=== PATIENT | male | born 1965 | race Caucasian/White ===

== ENCOUNTER 2018-10-08 14:41 | Observation (INO) ==
[2018-10-08] MEDS ORDERED: NORMAL SALINE 1,000 ML IV ONE (16:04)
[2018-10-08] MEDS ORDERED: PIPERACILLIN SODIUM/TAZOBACTAM 3.375 GM in DEXTROSE 5 % IN WATER 100 ML IV ONE ×2 (16:04)
[2018-10-08 16:36] LABS: Hematocrit 48.7 % (42.0-52.0); Hemoglobin 16.6 gm/dL (13.5-18.0); Mean Cell Volume 89.2 fl (78-100); Mean Corpuscular Hemoglobin 30.4 pg (27-31); Mean Corpuscular Hgb Conc 34.1 g/dl (32-36); Mean Platelet Volume 9.6 fl (8-11.3); Neutrophil % 65.6 % (42-75.0); Platelet Count 297 K/mm3 (150-450); Red Blood Count 5.46 M/mm3 (4.7-6.0); Red Cell Distribution Width 12.1 % (11.5-14.0); White Blood Count 12.2 K/mm3 (4.0-10.5)
--- NOTE | 2018-10-08 16:38 | ERNOTE ---
Lower Extremity HPI - Narrative Date of Service: 10/08/18 - General Lower Extremities Pain: foot: right Time Seen by Provider: 10/08/18 15:57 Source: patient Exam Limitations: no limitations - Immun/Allergies/Home Medications Immunizations: IMMUNIZATION HX Immunizations Up to Date Yes History of Influenza Vaccine No Hx Pneumococcal Vaccination Yes Allergies/Adverse Reactions: Allergies Allergy/AdvReac Type Severity Reaction Status Date / Time No Known Allergies Allergy Unverified 10/08/18 15:18 Home Medications: HOME MEDICATIONS Insulin Aspart [Novolog] 25 units SC .BEFORE MEALS 10/08/18 [Last Taken Unknown] Insulin Glargine,Hum.rec.anlog [Lantus] 43 unit SQ HS 10/08/18 [Last Taken Unknown] - History of Present Illness Narrative: Patient presents to the ED for right foot pain and swelling after stepping on a seashell. The patient is not great with exact dates but he had stepped on a seashell and went to [facility] where this was removed in the ED. He was placed on ABx (what sounds like augmentin) but the redness and swellign has worsened and his pain has worsened with pain now up the right leg. Possible fev er. No acute weakness. He feels the infection in his foot is getting worse so came to the ED. He states he has "a bad memory". he thinks this was taken out Wednesday or Wednesday of this week. Occurred: other - This week Location of Incident: other - unk[place]own when he stepped on it Method of Injury: Reports: other - stepped on a seashell Loss of Consciousness: Reports: no loss of consciousness Modifying Factors - (Improves): Reports: other - nothing Modifying Factors - (Worsens): Reports: other - nothing Associated Symptoms: Denies: headache, weakness, vomiting/diarrhea Other Injuries: Reports: none Subsequent Symptoms: Denies: sensory loss, numbness, motor loss Prior Treament: Denies: recently seen Review of Systems - Review of Systems Constitutional: Present: other - possible fever EYE: Present: no symptoms reported Respiratory: Absent: shortness of breath Cardiology: Absent: chest pain Gastrointestinal/Abdominal: Absent: abdominal pain Genitourinary: Absent: dysuria Musculoskeletal: Present: See HPI Skin: Present: See HPI Neurological: Present: other - no acute weakness All Other Systems: All systems neg except as marked Medical History (Updated 10/08/18 @ 15:16 by Maria Pelaez RN) COPD (chronic obstructive pulmonary disease) Diabetes Heart murmur Hypercholesteremia Hypertension Surgical History: Surgical History (Updated 10/08/18 @ 15:16 by Maria Pelaez RN) Knee pain cleaned out staph infection Right foot pain cleaned out staph infection Right hip pain cleaned out staph infection Family History: Family History (Updated 10/08/18 @ 15:17 by Maria Pelaez RN) Mother Diabetes Father Lung cancer Grandfather Myocardial infarction Social History: Preferred Language Setswana Do you have any caodaism or Yes cultural preference? Smoking Status Current every day smoker Have you smoked in the past 12 Yes months Alcohol Use none Drug Use none No Social History Section defined Physical Exam - Physical Exam General Appearance: Present: alert, no apparent distress Head Exam: Present: normal inspection, no evidence of injury Eye Exam: Normal inspection: bilateral, PERRL: bilateral Ears, Nose, Throat: Present: normal ENT inspection Neck: Present: normal inspection Respiratory: Present: no respiratory distress, normal breath sounds, no accessory muscle use, lungs clear Cardiovascular/Chest: Present: regular rate, rhythm, normal peripheral pulses Gastrointestinal/Abdominal: Present: normal bowel sounds, nontender, soft Back Exam: Absent: CVA tenderness (R), CVA tenderness (L) Extremity Exam: Present: other - there is redness and swelling of the right foot. The bottom of the foot has a 1cm area of eschar, firmness and no clear abscess. Redness top of foot also, warmth. No suggestion of acute neurovascular deficit. No evidence of DVT or clear evidence of nec fasc. Neurological Exam: Present: alert, no motor/sensory deficits Skin Exam: Present: normal color, warm/dry, other - redness and warmth right foot, see extremity exam Progress - Results and Orders Patient's Lab Results:: I have reviewed the patient's lab results. - Vital Signs Patient's Vital Signs:: I have reviewed the patient's vital signs. Vital Signs: Vital Signs 10/08/18 15:20 Temperature 37.0 C Pulse Rate 112 H Respiratory Rate 20 Blood Pressure 148/95 H O2 Sat by Pulse Oximetry 97 - X-Ray X-Ray #1 X-Ray: foot Interpretation: Interp. by me X-ray Comments: I reviewed official radiology report - Progress/Reassessment Chief Complaint: Lower Extremity Pain/ Injury Progress Note-Subjective: 10/08/18 17:57 Patient given IV fluids and IV antibiotics. He has foot infection worsening despite IV antibiotics. Diabetic. I discussed the case with Dr Gross who saw the patient in the ED and will admit the patient obs. Departure Clinical Impression: Cellulitis of foot, Diabetes, Failure of outpatient treatment, Hyperglycemia - Departure Disposition: Still a patient Condition: Fair
[2018-10-08 16:48] LABS: Albumin * 3.5 gm/dl (3.4-5.0); BUN/Creatinine Ratio 13.3 (9.0-21.6); Bilirubin, Total 0.4 mg/dL (0.0-1.1); CRP 3.9 mg/dL (0.0-0.9); Ca. Corrected For Albumin 9.2 mg/dL (8.4-10.2); Calcium * 9.1 mg/dL (7.9-10.9); Carbon Dioxide 26.9 mmol/L (24-32.6); Potassium 4.9 mmol/L (3.4-4.6); Total Protein 8.1 gm/dL (6.2-8.2)
--- NOTE | 2018-10-08 18:10 | HP ---
Chief Complaint - Chief Complaint Date of Service: 10/08/18 Time of Service: 17:35 Chief Complaint: Right foot pain and swelling History of Present Illness: 53-year-old male with a past medical history of hypertension, diabetes on ins ulin, COPD, hyperlipidemia presents with complaints of right foot pain. He states about 2 weeks ago he stepped on a shell and thought he had removed all the pieces. His foot pain worsened and began swelling so he presented to the [facility] and had a foot x-ray done that showed there was retained pieces inside. The rest of the shell was excised and he was started on antibiotics which she has completed. He states his foot did not improve but continued to hurt and swell until he could no longer walk on it so he presented to our emergency room. He was found to be mildly hypertensive and mildly tachycardic, mild leukocytosis of 12,000, foot x-ray showed no acute osseous abnormality. He was started on Zosyn in the ER. Blood cultures and wound cultures were obtained and he will be admitted for observation. Medical History (Updated 10/08/18 @ 18:18 by Caitlyn Pena MD) COPD (chronic obstructive pulmonary disease) Diabetes Heart murmur Hypercholesteremia Hypertension Surgical History: Surgical History (Updated 10/08/18 @ 15:16 by Maria Pelaez RN) Knee pain cleaned out staph infection Right foot pain cleaned out staph infection Right hip pain cleaned out staph infection Family History: Family History (Updated 10/08/18 @ 15:17 by Maria Pelaez RN) Mother Diabetes Father Lung cancer Grandfather Myocardial infarction Social History: Preferred Language [place] Do you have any yazidism or Yes cultural preference? Smoking Status Current every day smoker Have you smoked in the past 12 Yes months Alcohol Use none Drug Use none No Social History Section defined Review Of Systems (GEN) - Review of Systems Generalized/Overall Review: Present: Chills. Absent: Fever Respiratory: Absent: Shortness of Breath Cardiac: Absent: Chest Pain Abdominal: Absent: Abdominal Pain Musculoskeletal: Present: Other - Right foot pain and swelling Misc: All systems neg except as marked Immunizations: IMMUNIZATION HX Immunizations Up to Date Yes History of Influenza Vaccine No Hx Pneumococcal Vaccination Yes Allergies/Adverse Reactions: Allergies Allergy/AdvReac Type Severity Reaction Status Date / Time No Known Allergies Allergy Unverified 10/08/18 15:18 Home Medications: HOME MEDICATIONS Insulin Aspart [Novolog] 25 units SC .BEFORE MEALS 10/08/18 [Last Taken Unknown] Insulin Glargine,Hum.rec.anlog [Lantus] 43 unit SQ HS 10/08/18 [Last Taken Unknown] Exam - Exam Vital Signs: Vital Signs - Last Taken Temp 37.0 C 10/08/18 15:20 Pulse 112 H 10/08/18 15:20 Resp 20 10/08/18 15:20 BP 148/95 H 10/08/18 15:20 Pulse Ox 97 10/08/18 15:20 Constitutional: Present: Alert, Cooperative, Well developed, Well nourished, No distress, Middle aged ENT Exam: Present: hearing grossly normal Eye Exam: bilateral eye: normal inspection, PERRL Neck: Present: non-tender, supple, normal inspection, trachea midline, lymphadenopathy (L). Absent: lymphadenopathy (R) Back Exam: Present: normal inspection, no vertebral tenderness Respiratory: Present: lungs clear, normal breath sounds, no respiratory distress, no accessory muscle use, No wheezing. Absent: crackles, rhonchi Cardiovascular/Chest: Present: normal peripheral pulses, regular rate, rhythm, systolic murmur Peripheral Pulses: dorsalis-pedis (R): 1+, dorsalis-pedis (L): 1+ Abdomen: Present: Normal bowel sounds, soft, nontender Extremity: Present: swelling - Right foot Skin Exam: Present: warm/dry - Right foot erythematous and warm and tender to touch especially on plantar aspect Neurologic: Present: alert, normal mood/affect Appearance: Present: appropriate appearance Eye contact: Present: cooperative Thoughts: Present: normal mood /affect Diagnostic Studies: Abnormal Lab Results 10/08/18 10/08/18 10/08/18 Range/Units 16:12 16:12 16:12 WBC 12.2 H (4.0-10.5) K/mm3 Immature Gran # (Auto) 0.04 H (0.000-0.0310) K/mm3 Neutrophils # 8.0 H (1.3-6.0) K/mm3 ESR 39 H (0-10) mm/hr Potassium 4.9 H (3.4-4.6) mmol/L Anion Gap 15.0 H (6.8-13.8) mmol/L Random Glucose 420 H (70-110) mg/dL C-Reactive Prot, Quant 3.9 H (0.0-0.9) mg/dL Laboratory Results WBC 12.2 K/mm3 (4.0-10.5) H 10/08/18 16:12 RBC 5.46 M/mm3 (4.7-6.0) 10/08/18 16:12 Hgb 16.6 gm/dL (13.5-18.0) 10/08/18 16:12 Hct 48.7 % (42.0-52.0) 10/08/18 16:12 MCV 89.2 fl (78-100) 10/08/18 16:12 MCH 30.4 pg (27-31) 10/08/18 16:12 MCHC 34.1 g/dl (32-36) 10/08/18 16:12 RDW 12.1 % (11.5-14.0) 10/08/18 16:12 Plt Count 297 K/mm3 (150-450) 10/08/18 16:12 MPV 9.6 fl (8-11.3) 10/08/18 16:12 Immature Gran % (Auto) 0.30 % (0.001-0.429) 10/08/18 16:12 Immature Gran # (Auto) 0.04 K/mm3 (0.000-0.0310) H 10/08/18 16:12 65.6 % (42-75.0) 10/08/18 16:12 25.6 % (20-51) 10/08/18 16:12 7.0 % (0.0-9) 10/08/18 16:12 1.1 % (0.0-3.0) 10/08/18 16:12 0.4 % (0.0-1.0) 10/08/18 16:12 Nucleated RBC % 0.0 k/mm3 (0-1) 10/08/18 16:12 8.0 K/mm3 (1.3-6.0) H 10/08/18 16:12 3.12 k/mm3 (1.5-3.5) 10/08/18 16:12 0.9 k/mm3 (0.0-1.0) 10/08/18 16:12 0.1 k/mm3 (0.0-0.7) 10/08/18 16:12 Absolute Basophils 0.1 k/mm3 (0.0-0.1) 10/08/18 16:12 ESR 39 mm/hr (0-10) H 10/08/18 16:12 Sodium 135 mmol/L (132-142) 10/08/18 16:12 140 mmol/L (130-142) 10/08/18 16:12 Potassium 4.9 mmol/L (3.4-4.6) H 10/08/18 16:12 Chloride 98 mmol/L (97-106) 10/08/18 16:12 Carbon Dioxide 26.9 mmol/L (24-32.6) 10/08/18 16:12 15.0 mmol/L (6.8-13.8) H 10/08/18 16:12 BUN 13 mg/dL (6-23) 10/08/18 16:12 0.98 mg/dL (0.4-1.4) 10/08/18 16:12 Est GFR (Non-Af Amer) 84 mL/min (60-130) 10/08/18 16:12 13.3 (9.0-21.6) 10/08/18 16:12 420 mg/dL (70-110) H 10/08/18 16:12 1.1 mmol/L (0.4-2.0) 10/08/18 16:12 Calcium 9.1 mg/dL (7.9-10.9) 10/08/18 16:12 Calcium Adj for Albumin 9.2 mg/dL (8.4-10.2) 10/08/18 16:12 0.4 mg/dL (0.0-1.1) 10/08/18 16:12 AST 7 U/L (0-48) 10/08/18 16:12 ALT 20 U/L (19-67) 10/08/18 16:12 109 U/L (50-170) 10/08/18 16:12 C-Reactive Prot, Quant 3.9 mg/dL (0.0-0.9) H 10/08/18 16:12 8.1 gm/dL (6.2-8.2) 10/08/18 16:12 3.5 gm/dl (3.4-5.0) 10/08/18 16:12 Assessment/Plan - Narrative Narrative: 53-year-old male with a past medical history of hypertension, diabetes on insulin, COPD, hyperlipidemia presents with complaints of right foot pain. He states about 2 weeks ago he stepped on a shell and thought he had removed all the pieces. His foot pain worsened and began swelling so he presented to the [facility] and had a foot x-ray done that showed there was retained pieces inside. The rest of the shell was excised and he was started on antibiot ics which she has completed. He states his foot did not improve but continued to hurt and swell until he could no longer walk on it so he presented to our emergency room. He was found to be mildly hypertensive and mildly tachycardic, mild leukocytosis of 12,000, foot x-ray showed no acute osseous abnormality. He was started on Zosyn in the ER. Blood cultures and wound cultures were obtained and he will be admitted for observation. - Assessment/Plan (1) Cellulitis of foot Assessment: Continue with Zosyn. Awaiting blood and wound cultures. If he does not improve with IV antibiotics, we will consider a surgical consult to potentially drain the wound. Problem: Acute (2) Diabetes Assessment: Blood sugar elevated, resume home meds. 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 Problem: Chronic Qualifiers: Hypertension type: essential hypertension Qualified Code(s): I10 - Essential (primary) hypertension (4) Hyperlipidemia Assessment: Stable. Problem: Chronic
[2018-10-08] MEDS ORDERED: INSULIN ASPART 100 UNITS/ML VIAL SC SCH (18:30)
[2018-10-08] MEDS ORDERED: NICOTINE 21 MG PATC TD SCH (20:45)
[2018-10-08] MEDS ORDERED: INSULIN GLARGINE,HUM.REC.ANLOG 100 UNITS/ML VIAL SC SCH (21:00)
[2018-10-08] MEDS: SACCHAROMYCES BOULARDII 250 MG CAPSULE PO SCH (21:23)
[2018-10-09] MEDS: PIPERACILLIN SODIUM/TAZOBACTAM 3.375 GM in DEXTROSE 5 % IN WATER 100 ML IV SCH ×4 (01:01→08:31)
[2018-10-09 06:18] LABS: Hematocrit 46.1 % (42.0-52.0); Hemoglobin 15.4 gm/dL (13.5-18.0); Mean Cell Volume 89.9 fl (78-100); Mean Corpuscular Hgb Conc 33.4 g/dl (32-36); Mean Platelet Volume 9.3 fl (8-11.3); Neutrophil # 6.3 K/mm3 (1.3-6.0); Neutrophil % 59.9 % (42-75.0); Platelet Count 253 K/mm3 (150-450); Red Blood Count 5.13 M/mm3 (4.7-6.0); White Blood Count 10.5 K/mm3 (4.0-10.5)
[2018-10-09 06:33] LABS: Anion Gap 12.1 mmol/L (6.8-13.8); BUN/Creatinine Ratio 14.4 (9.0-21.6); Bilirubin, Total 0.6 mg/dL (0.0-1.1); Ca. Corrected For Albumin 9.3 mg/dL (8.4-10.2); Calcium * 8.8 mg/dL (7.9-10.9); Carbon Dioxide 27.1 mmol/L (24-32.6); Potassium 4.2 mmol/L (3.4-4.6)
[2018-10-09] MEDS: INSULIN ASPART 100 UNITS/ML VIAL SC SCH ×2 (07:50→11:50)
[2018-10-09] MEDS: SACCHAROMYCES BOULARDII 250 MG CAPSULE PO SCH (08:31)
--- NOTE | 2018-10-09 13:47 | DS ---
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 He states about 2 weeks ago he stepped on a shell and thought he had removed all the pieces. His foot pain worsened and began swelling so he presented to the [facility] and had a foot x-ray done that showed there was retained pieces inside. The rest of the shell was excised and he was started on antibiotics which she has completed. He states his foot did not improve but continued to hurt and swell until he could no longer walk on it so he presented to our emergency room. He was found to be mildly hypertensive and mildly tachyc ardic, mild leukocytosis of 12,000, foot x-ray showed no acute osseous abnormality. He was started on Zosyn in the ER. Blood cultures and wound cultures were obtained and he will be admitted for observation. Wound culture had no growth. His foot swelling and erythema improved on the Zosyn. I will send him home on amoxicillinclavulanate 875/125 mg and Bactrim double strength for 9 more days for 10 days of total treatment. Procedures Performed: none Results and Findings: Pending Mircobiology Results 10/08/18 16:32 Foot - Right Wound Culture - Preliminary No Growth Lab Pending Results 10/08/18 16:12: WBC 12.2 H, RBC 5.46, Hgb 16.6, Hct 48.7, MCV 89.2, MCH 30.4, MCHC 34.1, RDW 12.1, Plt Count 297, MPV 9.6, Immature Gran % (Auto) 0.30, Immature Gran # (Auto) 0.04 H, Neutrophils % 65.6, Lymphocytes % 25.6, Monocytes % 7.0, Eosinophils % 1.1, Basophils % 0.4, Nucleated RBC % 0.0, Neutrophils # 8.0 H, Lymphocytes # 3.12, Monocytes # 0.9, Eosinophils # 0.1, Absolute Basophils 0.1 10/08/18 16:12: Sodium 135, Plasma Sodium 140, Potassium 4.9 H, Chloride 98, Carbon Dioxide 26.9, Anion Gap 15.0 H, BUN 13, Creatinine 0.98, Est GFR (Non-Af Amer) 84, BUN/Creatinine Ratio 13.3, Random Glucose 420 H, Calcium 9.1, Calcium Adj for Albumin 9.2, Total Bilirubin 0.4, AST 7, ALT 20, Alkaline Phosphatase 109, C-Reactive Prot, Quant 3.9 H, Total Protein 8.1, Albumin 3.5 10/08/18 16:12: ESR 39 H 10/08/18 16:12: Lactic Acid, Venous 1.1 10/09/18 06:05: WBC 10.5, RBC 5.13, Hgb 15.4, Hct 46.1, MCV 89.9, MCH 30.0, MCHC 33.4, RDW 12.0, Plt Count 253, MPV 9.3, Immature Gran % (Auto) 0.50 H, Immature Gran # (Auto) 0.05 H, Neutrophils % 59.9, Lymphocytes % 30.6, Monocytes % 7.0, Eosinophils % 1.4, Basophils % 0.6, Nucleated RBC % 0.0, Neutrophils # 6.3 H, Lymphocytes # 3.22, Monocytes # 0.7, Eosinophils # 0.2, Absolute Basophils 0.1 10/09/18 06:05: Sodium 136, Plasma Sodium 139, Potassium 4.2, Chloride 101, Carbon Dioxide 27.1, Anion Gap 12.1, BUN 13, Creatinine 0.90, Est GFR (Non-Af Amer) 93, BUN/Creatinine Ratio 14.4, Random Glucose 270 H D, Calcium 8.8, Calcium Adj for Albumin 9.3, Total Bilirubin 0.6, AST 10, ALT 17 L, Alkaline Phosphatase 80, Total Protein 7.0, Albumin 3.0 L Discharge Location: Home Disposition: Home self-care Condition: Fair Discharge Activity: Activity as tolerated Discharge Diet: Consistent carbs Prescriptions (Any new or edited meds): Amoxicillin/Potassium Clav [Amox-Clav 875-125 mg Tablet] 1 each PO Q12H #18 tablet Sulfamethoxazole/Trimethoprim [Bactrim Ds] 1 tab PO BID #18 tab Complete Home Medications List: Complete Home Medication List: Insulin Aspart [Novolog] 25 units SC .BEFORE MEALS 10/08/18 Insulin Glargine,Hum.rec.anlog [Lantus] 43 unit SQ HS 10/08/18 Linagliptin/Metformin HCl [Jentadueto 2.5 mg-850 mg Tab] 1 ea PO BID 10/08/18 Amoxicillin/Potassium Clav [Amox-Clav 875-125 mg Tablet] 1 each PO Q12H #18 tablet 10/09/18 Sulfamethoxazole/Trimethoprim [Bactrim Ds] 1 tab PO BID #18 tab 10/09/18
[2018-10-09 15:01] VITALS: BP 142/86
== END 2018-10-09 14:30 | disposition home or self-care (01) ==
LOC: ER 14:41 → MS 14:41
PROVIDERS: ADMIT Internal Medicine; ATTEND Internal Medicine
CPT/HCPCS: 36415; 73630; 80053; 83605; 85025; 85652; 86140; 87040; 87070; 87077; 87186; 96361; 96365; 96366; 96372; 99285; G0378

== ENCOUNTER 2018-10-11 09:50 | Inpatient (IN) ==
--- NOTE | 2018-10-11 10:33 | ERNOTE ---
Lower Extremity HPI - Narrative Date of Service: 10/11/18 - General Lower Extremities Pain: foot: right Time Seen by Provider: 10/11/18 10:24 Source: patient Exam Limitations: no limitations - Immun/Allergies/Home Medications Immunizations: IMMUNIZATION HX Immunizations Up to Date Yes History of Influenza Vaccine No Hx Pneumococcal Vaccination No Allergies/Adverse Reactions: Allergies Allergy/AdvReac Type Severity Reaction Status Date / Time No Known Allergies Allergy Verified 10/11/18 13:46 Home Medications: HOME MEDICATIONS Linagliptin/Metformin HCl [Jentadueto 2.5 mg-850 mg Tab] 1 ea PO BID 10/08/18 [Last Taken Unknown] Albuterol Sulfate [Proventil Hfa] 2 puff INHALATION Q6H PRN 10/11/18 [Last Taken Unknown] Aspirin [Aspirin EC] 81 mg PO DAILY 10/11/18 [Last Taken Unknown] Gabapentin 600 mg PO TID 10/11/18 [Last Taken Unknown] Gemfibrozil 600 mg PO BID 10/11/18 [Last Taken Unknown] Insulin Aspart [Novolog Flexpen] 20 unit SQ AC 10/11/18 [Last Taken Unknown] Insulin Glargine,Hum.rec.anlog [Lantus Solostar] 43 unit SQ HS 10/11/18 [Last Taken Unknown] Ipratropium/Albuterol Sulfate [Iprat-Albut 0.5-3(2.5) mg/3 ml] 3 ml INHALATION QID PRN 10/11/18 [Last Taken Unknown] Lisinopril [Zestril] 30 mg PO DAILY 10/11/18 [Last Taken Unknown] Metoprolol Tartrate 50 mg PO BID 10/11/18 [Last Taken Unknown] Mirtazapine [Remeron] 30 mg PO HS 10/11/18 [Last Taken Unknown] Naproxen 375 mg PO BID 10/11/18 [Last Taken Unknown] Sertraline HCl [Zoloft] 100 mg PO DAILY 10/11/18 [Last Taken Unknown] risperiDONE [Risperdal] 2 mg PO HS 10/11/18 [Last Taken Unknown] traZODone HCL [Desyrel] 50 mg PO HS 10/11/18 [Last Taken Unknown] - Pain Score Pain Score #1 Pain Score: 8 - History of Present Illness Narrative: The patient is a 53 year old male who presents for right foot pain which has been worsening since inpatient discharge. There are associated symptoms of fever, fatigue, right foot redness and edema. The patient reports right foot pain, 8/10. There are no alleviating factors. There are aggravating factors of weight bearing and palpation. Previous treatments have included: Aleve, Bactrim DS and Augmentin without improvement. The past medical history includes: DM, COPD and HTN. The social history is positive for current tobacco use. The patient has had no ill contacts. Patient is unsure of specific dates but was seen at [facility] ER on 10/08/18 and admitted for right foot cellulitis. Patient was being treated with Augmentin at the time of admission after stepping on seashell and having removal of retained material to right foot previously at [facility] ER. Review of Systems - Review of Systems Constitutional: Present: fatigue. Absent: fever EYE: Present: no symptoms reported ENT: Present: no symptoms reported. Absent: ear pain, nasal drainage, sore throat Respiratory: Present: cough. Absent: shortness of breath Cardiology: Present: no symptoms reported. Absent: chest pain Gastrointestinal/Abdominal: Present: nausea. Absent: vomiting, diarrhea Genitourinary: Present: no symptoms reported. Absent: dysuria Musculoskeletal: Present: joint pain Skin: Present: change in color, other - edema Neurological: Present: no symptoms reported All Other Systems: All systems neg except as marked Medical History (Updated 10/08/18 @ 18:18 by Caitlyn Pena MD) COPD (chronic obstructive pulmonary disease) Diabetes Heart murmur Hypercholesteremia Hypertension Surgical History: Surgical History (Updated 10/08/18 @ 15:16 by Maria Pelaez RN) Knee pain cleaned out staph infection Right foot pain cleaned out staph infection Right hip pain cleaned out staph infection Family History: Family History (Updated 10/08/18 @ 15:17 by Maria Pelaez RN) Mother Diabetes Father Lung cancer Grandfather Myocardial infarction Social History: Preferred Language Mohawk Do you have any restorationism or No cultural preference? Smoking Status Current every day smoker Have you smoked in the past 12 Yes months Do you dip or chew tobacco No Alcohol Use none Drug Use none No Social History Section defined Physical Exam - Physical Exam General Appearance: Present: wd/wn, alert, moderate distress Head Exam: Present: normal inspection Ears, Nose, Throat: Present: normal ENT inspection, normal pharynx Neck: Present: normal inspection Respiratory: Present: no respiratory distress, normal breath sounds, no accessory muscle use, lungs clear Cardiovascular/Chest: Present: no murmur, tachycardia Peripheral Pulses: N=norm/S=strong/W=weak/B=bound/A=absent: Dorsalis-pedis (R): Normal Extremity Exam: Present: normal range of motion, pedal edema - edema with circumferential erythema to right foot up to ankle, other - puncture wound noted to plantar surface of right foot to forefoot 3rd 4th metatarsals Neurological Exam: Present: alert, oriented, normal mood/affect Skin Exam: Present: normal color, warm/dry Progress - Date and Time Seen: Date and Time: 10/11/18 12:06 Consult with , will present to ER for evaluation. 10/11/18 12:27 present to evaluate patient. 10/11/18 12:54 Discussed case with will admit for failed outpatient treatment, right foot cellulitis. Initiate Vanco and Zosyn. - Results and Orders Patient's Lab Results:: I have reviewed the patient's lab results. - Vital Signs Patient's Vital Signs:: I have reviewed the patient's vital signs. Vital Signs: Vital Signs 10/11/18 10:14 Temperature 36.7 C Pulse Rate 105 H Respiratory Rate 18 Blood Pressure 142/89 H O2 Sat by Pulse Oximetry 99 - X-Ray X-Ray #1 X-Ray: foot Interpretation: Reviewed by me X-ray Comments: IMPRESSION: No radiographic signs of osteomyelitis. If there is a persistent concern for osteomyelitis, consider MRI examination or 3 phase bone scan of the right foot on nonemergent basis. Electronically signed by Janessa Su M.D.. - Progress/Reassessment Chief Complaint: Foot Injury/Pain Departure Clinical Impression: Cellulitis of foot, Failure of outpatient treatment - Departure Disposition: Still a patient Condition: Stable
[2018-10-11 10:52] LABS: Hematocrit 49.4 % (42.0-52.0); Hemoglobin 16.8 gm/dL (13.5-18.0); Mean Cell Volume 89.5 fl (78-100); Mean Corpuscular Hemoglobin 30.4 pg (27-31); Mean Platelet Volume 9.3 fl (8-11.3); Neutrophil # 9.8 K/mm3 (1.3-6.0); Neutrophil % 69.5 % (42-75.0); Platelet Count 321 K/mm3 (150-450); Red Blood Count 5.52 M/mm3 (4.7-6.0); White Blood Count 14.1 K/mm3 (4.0-10.5)
[2018-10-11 10:55] LABS: Albumin * 3.5 gm/dl (3.4-5.0); Anion Gap 14.2 mmol/L (6.8-13.8); BUN/Creatinine Ratio 13.8 (9.0-21.6); Bilirubin, Total 0.4 mg/dL (0.0-1.1); Ca. Corrected For Albumin 9.1 mg/dL (8.4-10.2); Carbon Dioxide 24.1 mmol/L (24-32.6); Potassium 4.3 mmol/L (3.4-4.6); Total Protein 8.1 gm/dL (6.2-8.2)
[2018-10-11] MEDS ORDERED: VANCOMYCIN HCL 1 GM in DEXTROSE 5 % IN WATER 250 ML IV ONE ×2 (12:56)
[2018-10-11] MEDS ORDERED: PIPERACILLIN SODIUM/TAZOBACTAM 3.375 GM in DEXTROSE 5 % IN WATER 100 ML IV ONE ×2 (12:58)
--- NOTE | 2018-10-11 13:37 | CONS ---
[facility] - General Date of Service: 10/11/18 Narrative: Patient presents to the ED today for c/o worsening redness, swelling and pain to the right foot. States that he had been seen at [facility] ED several days ago following stepping on a seashell. Relates the retained piece of seashell was removed in the ED, a dressing was applied, and he was sent home with oral Augmentin. His symptoms progressively worsened, and he came to [facility] ED on 10/08/18, and was admitted for IV ABX therapy following failed outpatient care. After a couple of days, his symptoms had resolved, and he was discharged on oral Bactrim. Following his discharge, he has again progressively worsened, with increased redness, swelling, and pain in the right foot. Xrays were obtained on presentation today, and there is no retained foreign body present, however there were concerns of possible small abscess around the puncture site. I was consulted for eval and treatment of this area. Patient has h/o DM, and is a smoker. States that he has h/o staph infection at a young age that almost killed him. His previous cultures were positive for MRSA, per pt. Source: patient Exam Limitations: no limitations - History of Present Illness Timing/Duration: getting worse Associated Symptoms: fever/chills Allergies/Adverse Reactions: Allergies No Known Allergies Allergy (Verified 10/11/18 13:46) Home Medications: Home Medications Medication Instructions Recorded Last Taken Insulin Aspart [Novolog] 25 units SC .BEFORE MEALS 10/08/18 Unknown Insulin Glargine,Hum.rec.anlog 43 unit SQ HS 10/08/18 Unknown [Lantus] Linagliptin/Metformin HCl 1 ea PO BID 10/08/18 Unknown [Jentadueto 2.5 mg-850 mg Tab] Amoxicillin/Potassium Clav 1 ea PO Q12H #18 tab 10/09/18 Unknown [Amox-Clav 875-125 mg Tablet] Sulfamethoxazole/Trimethoprim 1 tab PO BID #18 tab 10/09/18 Unknown [Bactrim Ds] Procedures Spinal tap (02/21/01) Review of Systems - Review of Systems Generalized/Overall Review: Present: Chills, Malaise. Absent: Fever Respiratory: Absent: Shortness of Breath Cardiac: Present: Edema Abdominal: Present: Nausea. Absent: Vomiting, Diarrhea Musculoskeletal: Present: Other - right foot pain Skin: Present: Other - puncture wound plantar right foot Physical Examination - Exam Vital Signs: Vital Signs - Last Taken Temp 36.7 C 10/11/18 10:14 Pulse 105 H 10/11/18 10:14 Resp 18 10/11/18 10:14 BP 142/89 H 10/11/18 10:14 Pulse Ox 99 10/11/18 10:14 O2 Oxygen Delivery Method Room Air Constitutional: Present: Alert, Oriented x3, Cooperative, No distress Peripheral Pulses: dorsalis-pedis (R): 2+ - PT 2+ Extremity: Present: pedal edema - right foot, other - Right foot pain Skin Exam: Present: other - Puncture site to plantar right forefoot sub area of 4th metatarsal head with hyperkeratotic tissue overgrowth. Upon removal of hyperkeratotic tissue, a small abscess is noted, with purulent drainage expressed from the puncture site. After removal of all devitalized/hyperkeratotic tissue, puncture site measures 0.3 x 0.3 x 0.2 cm. Tissue appears red, granular following drainage of purulence. Surrounding tissue is hyperkeratotic, with erythema extending from the puncture site into the dorsum of the foot to the level of the midfoot. There is significant pain on palpation, and warmth to touch. Appearance: Present: appropriate appearance Eye contact: Present: cooperative Thoughts: Present: normal thought pattern - Results and Findings: Lab/Microbiology results last 24 hrs: Abnormal/Pending Laboratory Last 24 HRS 10/11/18 10/11/18 10/11/18 10:35 10:35 10:35 WBC 14.1 H D Immature Gran % (Auto) 0.50 H Immature Gran # (Auto) 0.07 H Neutrophils # 9.8 H ESR 50 H Anion Gap 14.2 H Random Glucose 196 H C-Reactive Prot, Quant 5.0 H - Assessments/Findings (1) Cellulitis of foot Diagnosis(s): Likely secondary to abscess formation that developed after the puncture site callused over. Verbal consent is obtained from the patient for bedside debridement. Area is prepped with alcohol. A #15 blade is utilized to s electively debride the puncture site, removing all callused tissue from the periphery and surface of the puncture site. Once the callus over the surface is removed, purulent drainage is expressed. Debridement is continued to the level of healthy, bleeding tissue, and until purulence is no longer present. A swab culture is obtained. The site was then flushed with sterile saline. A dry bandage of gauze, meenakshi, and tape is applied. Discussed with Cadence Forrester NP. Advise MRI of the foot to assess for any remaining abscess given the degree of redness in his foot and h/o puncture wound to the foot. Pt will likely be admitted for IV ABX following failure of outpatient therapy. Will plan to get MRI while he is inpatient. Will develop further treatment plan based on MRI and culture findings. Problem: Acute (2) Puncture wound of foot excluding toes with infection Diagnosis(s): Xray reviewed. Do not appreciate any retained foreign body in the foot. Believe he callused over the puncture site, and developed abscess to this area. Will treat as above. Problem: Acute Qualifiers: Encounter type: initial encounter Laterality: right Qualified Code(s): S91.331A - Puncture wound without foreign body, right foot, initial encounter; L08.9 - Local infection of the skin and subcutaneous tissue, unspecified
[2018-10-11] MEDS: VANCOMYCIN HCL 2 GM in DEXTROSE 5 % IN WATER 500 ML IV SCH ×2 (14:55)
[2018-10-11] MEDS ORDERED: ACETAMINOPHEN 325 MG TABLET PO PRN (16:23)
[2018-10-11] MEDS ORDERED: ALBUTEROL SULFATE/IPRATROPIUM 3 ML NEBU IH PRN (16:31)
[2018-10-11] MEDS ORDERED: ALBUTEROL SULFATE 2.5 MG/0.5 ML VIAL.NEB IH PRN (16:31)
--- NOTE | 2018-10-11 17:10 | HP ---
Chief Complaint - Chief Complaint Date of Service: 10/11/18 Time of Service: 16:53 Chief Complaint: I have right foot pain. History of Present Illness: 53-year-old male with past medical history of type 2 diabetes on insulin, COPD, nicotine dependence, hypercholesterolemia, hypertension, schizophrenia, was evaluated in our ER due to worsening right foot pain of one- month duration. Patient reports that the pain started after stepping on a seashell at his daughter's home, the seizure was part of a collection that belongs to his grandson. While walking the patient stepped into the seashell and 1 of the spikes dog into his right foot. Patient made an attempt to remove the seashell from his foot and thought that he had gotten it all out but was unaware that a fragment stayed lodged into his foot. A day later he started having pain with ambulation of the involved foot and went to see his Dr. Roman patient reports that nursing staff from the clinic removed the fragment that was likely his foot but did not clean the wound, he was sent home with oral antibiotics. However the pain in his foot worsened and he started having swelling. He then came to our ER where he was admitted for IV antibiotics and was later discharged with p.o. antibiotics. However the improvement was short- lived the patient's swelling worsened and it became difficult for him to ambulate due to pain. He also reports having fever and chills and elevated blood glucose levels since becoming ill. Medical History (Updated 10/11/18 @ 17:10 by Tere Oneill MD) COPD (chronic obstructive pulmonary disease) Diabetes Heart murmur Hypercholesteremia Hypertension Surgical History: Surgical History (Updated 10/11/18 @ 13:37 by Yasmeen Mccrary DPM) Knee pain cleaned out staph infection Right foot pain cleaned out staph infection Right hip pain cleaned out staph infection Family History: Family History (Updated 10/08/18 @ 15:17 by Maria Pelaez RN) Mother Diabetes Father Lung cancer Grandfather Myocardial infarction Social History: Patient Lives/Resources Home Utilized Occupation retired Preferred Language [place] Do you have any oriental orthodox or No cultural preference? Smoking Status Current every day smoker Have you smoked in the past 12 Yes months Do you dip or chew tobacco No Alcohol Use none Drug Use none No Social History Section defined Peds Patient Hx - Developmental: No Pertinent Hx Peds Patient Hx - Medical: No Pertinent Hx Peds Patient Hx - Cardiac/Respiratory: No Pertinent Hx Peds Patient Hx - Surgical: No Surgical History Patient History - Cancer: No Hx of Cancer Review Of Systems (GEN) - Review of Systems Generalized/Overall Review: Present: Chills, Fever EENTM: Present: No Symptoms Reported Respiratory: Present: No Symptoms Reported Cardiac: Present: No Symptoms Reported Abdominal: Present: No Symptoms Reported Genitourinary: Present: No Symptoms Reported Musculoskeletal: Present: Joint Pain, Joint Swelling, Other - Right foot pain with ulcer in the plantar lateral metatarsal region. Neurological: Present: No Symptoms Reported Skin: Present: No Symptoms Reported Endocrine: Present: No Symptoms Reported Immunizations: IMMUNIZATION HX Immunizations Up to Date Yes History of Influenza Vaccine No Hx Pneumococcal Vaccination No Allergies/Adverse Reactions: Allergies Allergy/AdvReac Type Severity Reaction Status Date / Time No Known Allergies Allergy Verified 10/11/18 13:46 Home Medications: HOME MEDICATIONS Linagliptin/Metformin HCl [Jentadueto 2.5 mg-850 mg Tab] 1 ea PO BIDWM 10/08/18 [Last Taken Unknown] Albuterol Sulfate [Proventil Hfa] 2 puff INHALATION Q6H PRN 10/11/18 [Last Taken Unknown] Aspirin [Aspirin EC] 81 mg PO DAILY 10/11/18 [Last Taken Unknown] Gabapentin 600 mg PO TID 10/11/18 [Last Taken Unknown] Gemfibrozil 600 mg PO BID 10/11/18 [Last Taken Unknown] Insulin Aspart [Novolog Flexpen] 20 unit SQ 10/11/18 [Last Taken Unknown] Insulin Glargine,Hum.rec.anlog [Lantus Solostar] 43 unit SQ 10/11/18 [Last Taken Unknown] Ipratropium/Albuterol Sulfate [Iprat-Albut 0.5-3(2.5) mg/3 ml] 3 ml INHALATION QID PRN 10/11/18 [Last Taken Unknown] Lisinopril [Zestril] 30 mg PO DAILY 10/11/18 [Last Taken Unknown] Metoprolol Tartrate 50 mg PO BID 10/11/18 [Last Taken Unknown] Mirtazapine [Remeron] 30 mg PO HS 10/11/18 [Last Taken Unknown] Naproxen 375 mg PO BID 10/11/18 [Last Taken Unknown] Sertraline HCl [Zoloft] 100 mg PO DAILY 10/11/18 [Last Taken Unknown] risperiDONE [Risperdal] 2 mg PO HS 10/11/18 [Last Taken Unknown] traZODone HCL [Desyrel] 50 mg PO HS 10/11/18 [Last Taken Unknown] Exam - Exam Vital Signs: Vital Signs - Last Taken Temp 36.4 C 10/11/18 14:25 Pulse 89 10/11/18 14:25 Resp 16 10/11/18 14:25 BP 141/84 H 10/11/18 14:25 Pulse Ox 97 10/11/18 14:25 Constitutional: Present: Alert, Oriented x3, Cooperative, Well developed, Well nourished, No distress ENT Exam: Present: normal ENT inspection, hearing grossly normal, pharynx normal, TMs normal Eye Exam: bilateral eye: normal inspection, PERRL, EOMI Neck: Present: non-tender, full range of motion, supple, normal inspection, trachea midline Back Exam: Present: normal inspection, no CVA tenderness, no vertebral tenderness Breasts: Present: Exam deferred Respiratory: Present: chest non-tender, lungs clear, normal breath sounds, no r espiratory distress, no accessory muscle use Cardiovascular/Chest: Present: normal peripheral pulses, regular rate, rhythm, no chest tenderness, no edema, no gallop, no JVD, no murmur, no rub Peripheral Pulses: carotid (R): 4+, carotid (L): 4+, femoral (R): 4+, femoral (L): 4+, dorsalis-pedis (R): 2+, dorsalis-pedis (L): 2+, radial (R): 4+, radial (L): 4+ Abdomen: Present: Normal bowel sounds, soft, nontender, nondistended, no rebound tenderness, no hepatospenomegaly, no masses, obese /Rectal: Present: Exam deferred Extremity: Present: normal range of motion, no pedal edema, no calf tenderness, claudication, leg pain, pedal edema, slow capillary refill, swelling, other - Small concentric puncture wound in lateral plantar region of right foot with mild surrounding erythema covered by bandage stained with small bloody discharge . Skin Exam: Present: normal color, warm/dry, no cyanosis Lymphatic: Present: no adenopathy Neurologic: Present: entomology professor II-XII nml as tested, normal cerebellar test, no motor/sensory deficits, alert, normal mood/affect, oriented x 3 Appearance: Present: appropriate appearance, appropriate insight, neat, no memory impairment Eye contact: Present: cooperative, good eye contact, normal speech Thoughts: Present: normal thought pattern, no apparent hallucination Diagnostic Studies: Abnormal Lab Results 10/11/18 10/11/18 10/11/18 Range/Units 10:35 10:35 10:35 WBC 14.1 H D (4.0-10.5) K/mm3 Immature Gran % (Auto) 0.50 H (0.001-0.429) % Immature Gran # (Auto) 0.07 H (0.000-0.0310) K/mm3 Neutrophils # 9.8 H (1.3-6.0) K/mm3 ESR 50 H (0-10) mm/hr Anion Gap 14.2 H (6.8-13.8) mmol/L Random Glucose 196 H (70-110) mg/dL C-Reactive Prot, Quant 5.0 H (0.0-0.9) mg/dL Laboratory Results WBC 14.1 K/mm3 (4.0-10.5) H D 10/11/18 10:35 RBC 5.52 M/mm3 (4.7-6.0) 10/11/18 10:35 Hgb 16.8 gm/dL (13.5-18.0) 10/11/18 10:35 Hct 49.4 % (42.0-52.0) 10/11/18 10:35 MCV 89.5 fl (78-100) 10/11/18 10:35 MCH 30.4 pg (27-31) 10/11/18 10:35 MCHC 34.0 g/dl (32-36) 10/11/18 10:35 RDW 12.0 % (11.5-14.0) 10/11/18 10:35 Plt Count 321 K/mm3 (150-450) 10/11/18 10:35 MPV 9.3 fl (8-11.3) 10/11/18 10:35 Immature Gran % (Auto) 0.50 % (0.001-0.429) H 10/11/18 10:35 Immature Gran # (Auto) 0.07 K/mm3 (0.000-0.0310) H 10/11/18 10:35 69.5 % (42-75.0) 10/11/18 10:35 22.7 % (20-51) 10/11/18 10:35 6.0 % (0.0-9) 10/11/18 10:35 1.0 % (0.0-3.0) 10/11/18 10:35 0.3 % (0.0-1.0) 10/11/18 10:35 Nucleated RBC % 0.0 k/mm3 (0-1) 10/11/18 10:35 9.8 K/mm3 (1.3-6.0) H 10/11/18 10:35 3.19 k/mm3 (1.5-3.5) 10/11/18 10:35 0.8 k/mm3 (0.0-1.0) 10/11/18 10:35 0.1 k/mm3 (0.0-0.7) 10/11/18 10:35 Absolute Basophils 0.0 k/mm3 (0.0-0.1) 10/11/18 10:35 ESR 50 mm/hr (0-10) H 10/11/18 10:35 Sodium 137 mmol/L (132-142) 10/11/18 10:35 139 mmol/L (130-142) 10/11/18 10:35 Potassium 4.3 mmol/L (3.4-4.6) 10/11/18 10:35 Chloride 103 mmol/L (97-106) 10/11/18 10:35 Carbon Dioxide 24.1 mmol/L (24-32.6) 10/11/18 10:35 14.2 mmol/L (6.8-13.8) H 10/11/18 10:35 BUN 12 mg/dL (6-23) 10/11/18 10:35 0.87 mg/dL (0.4-1.4) 10/11/18 10:35 Est GFR (Non-Af Amer) 97 mL/min (60-130) 10/11/18 10:35 13.8 (9.0-21.6) 10/11/18 10:35 196 mg/dL (70-110) H 10/11/18 10:35 1.3 mmol/L (0.4-2.0) 10/11/18 10:35 Calcium 9.0 mg/dL (7.9-10.9) 10/11/18 10:35 Calcium Adj for Albumin 9.1 mg/dL (8.4-10.2) 10/11/18 10:35 0.4 mg/dL (0.0-1.1) 10/11/18 10:35 AST 11 U/L (0-48) 10/11/18 10:35 ALT 20 U/L (19-67) 10/11/18 10:35 103 U/L (50-170) 10/11/18 10:35 C-Reactive Prot, Quant 5.0 mg/dL (0.0-0.9) H 10/11/18 10:35 8.1 gm/dL (6.2-8.2) 10/11/18 10:35 3.5 gm/dl (3.4-5.0) 10/11/18 10:35 Assessment/Plan - Narrative Narrative: Patient was evaluated and medical chart was reviewed and decision to admit to inpatient services for diagnosis of right foot cellulitis which has felt outpatient treatment was taken. Patient will be treated with IV antibiotics, IV hydration, and the equine dentist was consulted. Bedside debridement was performed by the equine dentist and the foot was wrapped in a clean bandage. Wound cultures were taken we will follow-up with results to adjust antibiotics accordingly. Patient was found to have elevated white count we will order follow-up labs for the morning. All routine medications have been reconciled for continued administration during hospitalization. - Procedures Results: Incision and drainage of right foot ulcer. - Assessment/Plan (1) Cellulitis of right foot Problem: Acute (2) Puncture wound of foot excluding toes with infection Problem: Acute Qualifiers: Encounter type: initial encounter Laterality: right Qualified Code(s): S91.331A - Puncture wound without foreign body, right foot, initial encounter; L08.9 - Local infection of the skin and subcutaneous tissue, unspecified (3) Failure of outpatient treatment Problem: Acute
[2018-10-11] MEDS ORDERED: NORMAL SALINE 1,000 ML IV ONE (17:23)
[2018-10-11] MEDS: [UNRECOGNIZED DRUG - OTHER] PO SCH (17:38)
[2018-10-11] MEDS: LINAGLIPTIN PO SCH (17:38)
[2018-10-11] MEDS: METFORMIN HCL PO SCH (17:38)
[2018-10-11] MEDS: NICOTINE 21 MG PATC TD SCH (17:38)
[2018-10-11] MEDS: ENOXAPARIN SODIUM 40 MG/0.4 ML SYRG SC SCH (17:40)
[2018-10-11] MEDS: INSULIN ASPART 100 UNITS/ML VIAL SC SCH (17:43)
[2018-10-11] MEDS: FAMOTIDINE 20 MG in DEXTROSE 5 % IN WATER 100 ML IV SCH ×2 (19:23)
[2018-10-11] MEDS ORDERED: INSULIN GLARGINE,HUM.REC.ANLOG 100 UNITS/ML VIAL SC SCH (21:00)
[2018-10-11] MEDS: traZODone HCL 50 MG TABLET PO SCH (22:01)
[2018-10-11] MEDS: PIPERACILLIN SODIUM/TAZOBACTAM 3.375 GM in DEXTROSE 5 % IN WATER 100 ML IV SCH ×2 (22:01)
[2018-10-11] MEDS: SACCHAROMYCES BOULARDII 250 MG CAPSULE PO SCH (22:02)
[2018-10-11] MEDS: GEMFIBROZIL 600 MG TABLET PO SCH (22:02)
[2018-10-11] MEDS: METOPROLOL TARTRATE 50 MG TABLET PO SCH (22:02)
[2018-10-11] MEDS: GABAPENTIN 600 MG TABLET PO SCH (22:03)
[2018-10-11] MEDS: MIRTAZAPINE 15 MG TABLET PO SCH (22:03)
[2018-10-11] MEDS: NAPROXEN 375 MG TABLET PO SCH (22:03)
[2018-10-11] MEDS: risperiDONE 1 MG TABLET PO SCH (22:04)
[2018-10-12] MEDS: VANCOMYCIN HCL 2 GM in DEXTROSE 5 % IN WATER 500 ML IV SCH ×4 (02:15→14:50)
[2018-10-12] MEDS: FAMOTIDINE 20 MG in DEXTROSE 5 % IN WATER 100 ML IV SCH ×2 (05:30)
[2018-10-12 05:57] LABS: Hematocrit 43.2 % (42.0-52.0); Hemoglobin 14.4 gm/dL (13.5-18.0); Mean Cell Volume 90.4 fl (78-100); Mean Corpuscular Hemoglobin 30.1 pg (27-31); Mean Corpuscular Hgb Conc 33.3 g/dl (32-36); Mean Platelet Volume 9.4 fl (8-11.3); Neutrophil # 5.8 K/mm3 (1.3-6.0); Platelet Count 275 K/mm3 (150-450); Red Blood Count 4.78 M/mm3 (4.7-6.0); White Blood Count 10.8 K/mm3 (4.0-10.5)
[2018-10-12 06:09] LABS: Albumin * 2.9 gm/dl (3.4-5.0); Anion Gap 13.1 mmol/L (6.8-13.8); BUN/Creatinine Ratio 9.6 (9.0-21.6); Bilirubin, Total 0.6 mg/dL (0.0-1.1); Ca. Corrected For Albumin 9.3 mg/dL (8.4-10.2); Calcium * 8.7 mg/dL (7.9-10.9); Carbon Dioxide 24.3 mmol/L (24-32.6); Potassium 4.4 mmol/L (3.4-4.6); Total Protein 6.8 gm/dL (6.2-8.2)
[2018-10-12] MEDS: PIPERACILLIN SODIUM/TAZOBACTAM 3.375 GM in DEXTROSE 5 % IN WATER 100 ML IV SCH ×6 (06:14→22:28)
[2018-10-12] MEDS: LISINOPRIL 10 MG TABLET PO SCH (09:28)
[2018-10-12] MEDS: GABAPENTIN 600 MG TABLET PO SCH ×3 (09:29→22:26)
[2018-10-12] MEDS: GEMFIBROZIL 600 MG TABLET PO SCH ×2 (09:29→22:23)
[2018-10-12] MEDS: SERTRALINE HCL 100 MG TABLET PO SCH (09:29)
[2018-10-12] MEDS: SACCHAROMYCES BOULARDII 250 MG CAPSULE PO SCH ×2 (09:29→22:26)
[2018-10-12] MEDS: NAPROXEN 375 MG TABLET PO SCH ×2 (09:29→22:24)
[2018-10-12] MEDS: METOPROLOL TARTRATE 50 MG TABLET PO SCH ×2 (09:30→22:23)
[2018-10-12] MEDS: DOCUSATE SODIUM 100 MG CAPSULE PO SCH (09:30)
[2018-10-12] MEDS: ASPIRIN 81 MG TABLET.DR PO SCH (09:30)
[2018-10-12] MEDS: INSULIN ASPART 100 UNITS/ML VIAL SC SCH ×5 (09:30→17:37)
--- NOTE | 2018-10-12 10:40 | PN ---
Subjective - Date and Time Seen Date: 10/12/18 Time: 10:29 Subjective Narrative: I have less pain in my foot, now I'm able to bend but I still have pain on ambulation. Objective Objective Narrative: The 53-year-old male admitted to our institution for an abscess secondary to a puncture wound to his right foot was evaluated at bedside and was found to be afebrile and in no acute distress. This morning patient reports less pain in the right foot and says that now he is able to bend the foot which she was not able to do before, there is less erythema but there is still residual with redness in the fifth toe. MRI of the involved foot report soft tissue edema of the fourth and fifth metatarsals but could not completely rule out early osteomyelitis. However clinically patient is showing significant improvement in response to IV antibiotics, so we will reevaluate him tomorrow morning and follow-up on recommendations from the deputy county attorney. Final culture results should be available tomorrow we will adjust IV antibiotics accordingly. This morning's labs demonstrate WBCs have decreased from normal range. Will order follow-up labs for tomorrow morning. - Review of Systems Generalized/Overall Review: Reports: No Symptoms Reported EENTM: Reports: No Symptoms Reported Respiratory: Reports: No Symptoms Reported Cardiac: Reports: No Symptoms Reported Abdominal: Reports: No Symptoms Reported Genitourinary Symptoms: Reports: No Symptoms Reported Musculoskeletal Complaints: Reports: Joint Pain - Mild pain in plantar region of right foot Neurological: Reports: No Symptoms Reported Skin: Reports: No Symptoms Reported Endocrine: Reports: No Symptoms Reported - Vitals Vitals: Last Vital Signs Temp 36.6 C 10/12/18 10:02 Pulse 83 10/12/18 10:02 Resp 16 10/12/18 10:02 BP 128/79 10/12/18 10:02 Pulse Ox 98 10/12/18 10:02 - Abnormal Lab Findings Abnormal Lab Findings: Abnormal Lab Results 10/11/18 10/11/18 10/11/18 Range/Units 10:35 10:35 10:35 WBC 14.1 H D (4.0-10.5) K/mm3 Immature Gran % (Auto) 0.50 H (0.001-0.429) % Immature Gran # (Auto) 0.07 H (0.000-0.0310) K/mm3 Neutrophils # 9.8 H (1.3-6.0) K/mm3 Lymphocytes # (1.5-3.5) k/mm3 ESR 50 H (0-10) mm/hr Anion Gap 14.2 H (6.8-13.8) mmol/L Random Glucose 196 H (70-110) mg/dL ALT (19-67) U/L C-Reactive Prot, Quant 5.0 H (0.0-0.9) mg/dL Albumin (3.4-5.0) gm/dl 10/12/18 10/12/18 Range/Units 05:39 05:39 WBC 10.8 H D (4.0-10.5) K/mm3 Immature Gran % (Auto) (0.001-0.429) % Immature Gran # (Auto) 0.04 H (0.000-0.0310) K/mm3 Neutrophils # (1.3-6.0) K/mm3 Lymphocytes # 3.81 H (1.5-3.5) k/mm3 ESR (0-10) mm/hr Anion Gap (6.8-13.8) mmol/L Random Glucose 277 H D (70-110) mg/dL ALT 16 L (19-67) U/L C-Reactive Prot, Quant (0.0-0.9) mg/dL Albumin 2.9 L (3.4-5.0) gm/dl - Exam Constitutional: Present: Alert, Oriented x3, Cooperative, Well developed, Well nourished, No distress ENT Exam: Present: normal ENT inspection, hearing grossly normal, pharynx normal, TMs normal Neck: Present: non-tender, full range of motion, supple, normal inspection, trachea midline Breasts: Present: Exam deferred, Nontender Respiratory: Present: chest non-tender, lungs clear, normal breath sounds, no respiratory distress, no accessory muscle use, stridor Cardiovascular/Chest: Present: normal peripheral pulses, regular rate, rhythm, no chest tenderness, no edema, no gallop, no JVD, no murmur, no rub Abdomen: Present: Normal bowel sounds, soft, nontender, nondistended, no rebound tenderness, no hepatospenomegaly, no masses /Rectal: Present: Exam deferred Extremity: Present: normal range of motion, no pedal edema, no calf tenderness, other - Right foot wrapped in clean dry bandage no signs of bleeding or infection Skin Exam: Present: normal color, warm/dry, no cyanosis Lymphatic: Present: no adenopathy Neurologic: Present: gin operator II-XII nml as tested Appearance: Present: appropriate appearance Eye contact: Present: cooperative Thoughts: Present: normal thought pattern Assessment/Plan Plan Narrative: Patient will continue to be treated with IV antibiotics and IV hydration, we will follow up with culture results in the morning as well as follow-up labs to reevaluate WBCs, ESR, and CRP. We will follow-up with further recommendation from the deputy county attorney and reevaluate patient's foot in the morning. - Problems/Diagnosis (1) Cellulitis of right foot Problem: Acute (2) Puncture wound of foot excluding toes with infection Problem: Acute Qualifiers: Encounter type: initial encounter Laterality: right Qualified Code(s): S91.331A - Puncture wound without foreign body, right foot, initial encounter; L08.9 - Local infection of the skin and subcutaneous tissue, unspecified (3) Failure of outpatient treatment Problem: Acute
[2018-10-12] MEDS: METFORMIN HCL PO SCH ×2 (12:04→17:29)
[2018-10-12] MEDS: [UNRECOGNIZED DRUG - OTHER] PO SCH ×2 (12:04→17:29)
[2018-10-12] MEDS: LINAGLIPTIN PO SCH ×2 (12:04→17:29)
--- NOTE | 2018-10-12 14:59 | PN ---
Subjective - Date and Time Seen Date: 10/12/18 Time: 14:47 Subjective Narrative: Pt seen at bedside resting. States that he still has some pain in his right foot, however it has significantly improved since yesterday. Denies any NVFC. He did have MRI this morning. Wound culture pending. Objective - Review of Systems Generalized/Overall Review: Denies: Chills, Fever, Malaise Respiratory: Denies: Shortness of Breath Cardiac: Reports: Edema Abdominal: Denies: Nausea, Vomiting, Diarrhea Musculoskeletal Complaints: Reports: Other - foot pain Skin: Reports: Other - puncture wound right foot, erythema right foot - improving - Vitals Vitals: Last Vital Signs Temp 36.6 C 10/12/18 10:02 Pulse 83 10/12/18 10:02 Resp 16 10/12/18 10:02 BP 128/79 10/12/18 10:02 Pulse Ox 98 10/12/18 10:02 - Abnormal Lab Findings Abnormal Lab Findings: Abnormal Lab Results 10/12/18 10/12/18 Range/Units 05:39 05:39 WBC 10.8 H D (4.0-10.5) K/mm3 Immature Gran # (Auto) 0.04 H (0.000-0.0310) K/mm3 Lymphocytes # 3.81 H (1.5-3.5) k/mm3 Random Glucose 277 H D (70-110) mg/dL ALT 16 L (19-67) U/L Albumin 2.9 L (3.4-5.0) gm/dl - Exam Constitutional: Present: Alert, Oriented x3, Cooperative Extremity: Present: pedal edema - minimal, other - right foot pain - improved Skin Exam: Present: other - Puncture site to plantar right forefoot sub area of 4th metatarsal head. Remains open and measures 0.3 x 0.3 x 0.2 cm. Tissue appears red, granular. Surrounding tissue still with mild erythema, however now only localized about the distal lateral foot at the 4th/5th MtPJ area. Still with some swelling, however this has improved as well. Still with scant serous drainage, no longer with purulence. Can palpate the area with only minimal tenderness, skin no longer taught with swelling. Appearance: Present: appropriate appearance Assessment/Plan - Problems/Diagnosis (1) Cellulitis of foot Problem: Acute Narrative: Improved with current ABX. Will continue at this time. May adjust pending culture results. MRI reviewed with pt at bedside. I am not 100% convinced he has bone infection, however given his h/o failed outpatient treatment, I think it would be in his best interest to treat as such. Would recommend 3-4 weeks of IV antibiotic therapy following discharge, again pending culture results. Will continue with daily dressing changes with dry gauze, meenakshi, and tape. I will continue to monitor the status of his foot. Will plan for follow up in office upon discharge. Advise minimizing weight on foot to help reduce pressure to help with healing. (2) Puncture wound of foot excluding toes with infection Problem: Acute Qualifiers: Encounter type: initial encounter Laterality: right Qualified Code(s): S91.331A - Puncture wound without foreign body, right foot, initial encounter; L08.9 - Local infection of the skin and subcutaneous tissue, unspecified Narrative: as above
[2018-10-12] MEDS: NICOTINE 21 MG PATC TD SCH (17:32)
[2018-10-12] MEDS: ENOXAPARIN SODIUM 40 MG/0.4 ML SYRG SC SCH (17:32)
[2018-10-12] MEDS ORDERED: INSULIN GLARGINE,HUM.REC.ANLOG 100 UNITS/ML VIAL SC SCH (21:00)
[2018-10-12] MEDS: MIRTAZAPINE 15 MG TABLET PO SCH (22:24)
[2018-10-12] MEDS: FAMOTIDINE 20 MG TABLET PO SCH (22:25)
[2018-10-12] MEDS: risperiDONE 1 MG TABLET PO SCH (22:25)
[2018-10-12] MEDS: traZODone HCL 50 MG TABLET PO SCH (22:26)
[2018-10-13] MEDS: VANCOMYCIN HCL 2 GM in DEXTROSE 5 % IN WATER 500 ML IV SCH ×2 (01:30)
[2018-10-13] MEDS: PIPERACILLIN SODIUM/TAZOBACTAM 3.375 GM in DEXTROSE 5 % IN WATER 100 ML IV SCH ×2 (05:43)
[2018-10-13 05:59] LABS: Hematocrit 45.1 % (42.0-52.0); Hemoglobin 14.8 gm/dL (13.5-18.0); Mean Cell Volume 90.6 fl (78-100); Mean Corpuscular Hemoglobin 29.7 pg (27-31); Mean Corpuscular Hgb Conc 32.8 g/dl (32-36); Mean Platelet Volume 9.5 fl (8-11.3); Neutrophil # 6.9 K/mm3 (1.3-6.0); Neutrophil % 60.6 % (42-75.0); Platelet Count 288 K/mm3 (150-450); Red Blood Count 4.98 M/mm3 (4.7-6.0); Red Cell Distribution Width 12.1 % (11.5-14.0); White Blood Count 11.4 K/mm3 (4.0-10.5)
[2018-10-13] MEDS: GABAPENTIN 600 MG TABLET PO SCH (06:46)
[2018-10-13] MEDS: INSULIN ASPART 100 UNITS/ML VIAL SC SCH ×4 (06:47→11:49)
[2018-10-13] MEDS: FAMOTIDINE 20 MG TABLET PO SCH (09:21)
[2018-10-13] MEDS: LISINOPRIL 10 MG TABLET PO SCH (09:21)
[2018-10-13] MEDS: METOPROLOL TARTRATE 50 MG TABLET PO SCH (09:21)
[2018-10-13] MEDS: DOCUSATE SODIUM 100 MG CAPSULE PO SCH (09:21)
[2018-10-13] MEDS: SACCHAROMYCES BOULARDII 250 MG CAPSULE PO SCH (09:21)
[2018-10-13] MEDS: ASPIRIN 81 MG TABLET.DR PO SCH (09:21)
[2018-10-13] MEDS: NAPROXEN 375 MG TABLET PO SCH (09:22)
[2018-10-13] MEDS: [UNRECOGNIZED DRUG - OTHER] PO SCH (09:22)
[2018-10-13] MEDS: METFORMIN HCL PO SCH (09:22)
[2018-10-13] MEDS: SERTRALINE HCL 100 MG TABLET PO SCH (09:22)
[2018-10-13] MEDS: GEMFIBROZIL 600 MG TABLET PO SCH (09:22)
[2018-10-13] MEDS: LINAGLIPTIN PO SCH (09:22)
--- NOTE | 2018-10-13 11:36 | DS ---
(1) Cellulitis of right foot Problem: Acute (2) Puncture wound of foot excluding toes with infection Problem: Acute Qualifiers: Encounter type: initial encounter Laterality: right Qualified Code(s): S91.331A - Puncture wound without foreign body, right foot, initial encounter; L08.9 - Local infection of the skin and subcutaneous tissue, unspecified (3) Failure of outpatient treatment Problem: Acute Description of Stay: 53-year-old male admitted for cellulitis of the left lower extremity and a left plantar abscess secondary to a puncture wound to the sole of his foot was evaluated at bedside and was found to be afebrile and in no acute distress. Patient reports less pain and less tenderness in the involved foot and says now he is able to ambulate with more ease and able to bend his foot which he was unable to do before. Leukocytosis has improved in response to IV antibiotics and patient has not had any fever or chills during this hospitalization. Patient underwent incision and drainage as well as debridement of the lesion and his left foot by the dieters Dr. Mccrary, with subsequent regular evaluation and changing of his bandage. She reports improvement in the patient's condition and agrees with discharging patient with oral antibiotics. He was instructed to follow-up with his PCP as well as the histopathologist to evaluate his foot in a couple of days.. Procedures Performed: see notes below List Procedures: Incision and drainage and debridement of left foot abscess. Results and Findings: Pending Mircobiology Results 10/11/18 12:30 Foot - Right Wound Culture - Preliminary Staphylococcus Species 10/11/18 13:10 Blood Blood Culture - Preliminary NO GROWTH 24 HOURS 10/11/18 10:55 Blood Blood Culture - Preliminary NO GROWTH 24 HOURS Lab Pending Results 10/11/18 10:35: WBC 14.1 H D, RBC 5.52, Hgb 16.8, Hct 49.4, MCV 89.5, MCH 30.4, MCHC 34.0, RDW 12.0, Plt Count 321, MPV 9.3, Immature Gran % (Auto) 0.50 H, Immature Gran # (Auto) 0.07 H, Neutrophils % 69.5, Lymphocytes % 22.7, Monocytes % 6.0, Eosinophils % 1.0, Basophils % 0.3, Nucleated RBC % 0.0, Neutrophils # 9.8 H, Lymphocytes # 3.19, Monocytes # 0.8, Eosinophils # 0.1, Absolute Basophils 0.0 10/11/18 10:35: ESR 50 H 10/11/18 10:35: Sodium 137, Plasma Sodium 139, Potassium 4.3, Chloride 103, Carbon Dioxide 24.1, Anion Gap 14.2 H, BUN 12, Creatinine 0.87, Est GFR (Non-Af Amer) 97, BUN/Creatinine Ratio 13.8, Random Glucose 196 H, Calcium 9.0, Calcium Adj for Albumin 9.1, Total Bilirubin 0.4, AST 11, ALT 20, Alkaline Phosphatase 103, C-Reactive Prot, Quant 5.0 H, Total Protein 8.1, Albumin 3.5 10/11/18 10:35: Lactic Acid, Venous 1.3 10/12/18 05:39: WBC 10.8 H D, RBC 4.78, Hgb 14.4, Hct 43.2, MCV 90.4, MCH 30.1, MCHC 33.3, RDW 12.0, Plt Count 275, MPV 9.4, Immature Gran % (Auto) 0.40, Immature Gran # (Auto) 0.04 H, Neutrophils % 54.0, Lymphocytes % 35.3, Monocytes % 8.2, Eosinophils % 1.6, Basophils % 0.5, Nucleated RBC % 0.0, Neutrophils # 5.8, Lymphocytes # 3.81 H, Monocytes # 0.9, Eosinophils # 0.2, Absolute Bas ophils 0.1 10/12/18 05:39: Sodium 139, Plasma Sodium 142, Potassium 4.4, Chloride 106, Carbon Dioxide 24.3, Anion Gap 13.1, BUN 9, Creatinine 0.94, Est GFR (Non-Af Amer) 89, BUN/Creatinine Ratio 9.6, Random Glucose 277 H D, Calcium 8.7, Calcium Adj for Albumin 9.3, Total Bilirubin 0.6, AST 10, ALT 16 L, Alkaline Phosphatase 81, Total Protein 6.8, Albumin 2.9 L 10/13/18 05:30: WBC 11.4 H, RBC 4.98, Hgb 14.8, Hct 45.1, MCV 90.6, MCH 29.7, MCHC 32.8, RDW 12.1, Plt Count 288, MPV 9.5, Immature Gran % (Auto) 0.50 H, Immature Gran # (Auto) 0.06 H, Neutrophils % 60.6, Lymphocytes % 28.1, Monocytes % 8.5, Eosinophils % 1.8, Basophils % 0.5, Nucleated RBC % 0.0, Neutrophils # 6.9 H, Lymphocytes # 3.19, Monocytes # 1.0, Eosinophils # 0.2, Absolute Ba sophils 0.1 10/13/18 05:30: ESR 53 H 10/13/18 05:30: C-Reactive Prot, Quant 5.9 H Discharge Location: Home Disposition: Home self-care Condition: Good Face to Face Encounter completed per [facility] Guidelines: No Discharge Activity: Activity as tolerated Discharge Diet: Consistent carbs Referrals: Michaelle Heart ARNP [Primary Care Provider] - Additional Patient Instructions (free text): Will continue with daily dressing changes with dry gauze, meenakshi, and tape. F/U with Dr Mccrary on Wednesday10/17/18. Advise minimizing weight on foot to help reduce pressure to help with healing. Prescriptions (Any new or edited meds): Clindamycin HCl 600 mg PO Q8H 7 Days #21 capsule Complete Home Medications List: Complete Home Medication List: Linagliptin/Metformin HCl [Jentadueto 2.5 mg-850 mg Tab] 1 ea PO BIDWM 10/08/18 Albuterol Sulfate [Proventil Hfa] 2 puff INHALATION Q6H PRN 10/11/18 Aspirin [Aspirin EC] 81 mg PO DAILY 10/11/18 Gabapentin 600 mg PO TID 10/11/18 Gemfibrozil 600 mg PO BID 10/11/18 Insulin Aspart [Novolog Flexpen] 20 unit SQ AC 10/11/18 Insulin Glargine,Hum.rec.anlog [Lantus Solostar] 43 unit SQ HS 10/11/18 Ipratropium/Albuterol Sulfate [Iprat-Albut 0.5-3(2.5) mg/3 ml] 3 ml INHALATION QID PRN 10/11/18 Lisinopril [Zestril] 30 mg PO DAILY 10/11/18 Metoprolol Tartrate 50 mg PO BID 10/11/18 Mirtazapine [Remeron] 30 mg PO HS 10/11/18 Naproxen 375 mg PO BID 10/11/18 Sertraline HCl [Zoloft] 100 mg PO DAILY 10/11/18 risperiDONE [Risperdal] 2 mg PO HS 10/11/18 traZODone HCL [Desyrel] 50 mg PO HS 10/11/18 Clindamycin HCl 600 mg PO Q8H 7 Days #21 capsule 10/13/18
[2018-10-13 13:20] VITALS: BP 159/67
== END 2018-10-13 13:12 | disposition home or self-care (01) | DRG 914 ==
LOC: ER 09:50 → MS 13:00
PROVIDERS: ADMIT Family Medicine; ATTEND Family Medicine
CPT/HCPCS: 36415; 70030; 73630; 73720; 80053; 83605; 85025; 85652; 86140; 87040; 87070; 87077; 87186; A9576

== ENCOUNTER 2018-10-15 20:33 | Inpatient (IN) ==
[2018-10-15] MEDS ORDERED: PIPERACILLIN SODIUM/TAZOBACTAM 3.375 GM in DEXTROSE 5 % IN WATER 100 ML IV ONE ×2 (21:06)
[2018-10-15] MEDS ORDERED: HYDROmorphone HCL 1 MG/ML DISP.SYRIN IV ONE (21:06)
[2018-10-15] MEDS ORDERED: VANCOMYCIN HCL 1 GM in DEXTROSE 5 % IN WATER 250 ML IV ONE ×2 (21:06)
[2018-10-15] MEDS ORDERED: NORMAL SALINE 1,000 ML IV ONE (21:06)
--- NOTE | 2018-10-15 21:11 | ERNOTE ---
Integumentary HPI - Narrative Date of Service: 10/15/18 - General Presenting Symptoms: other - Cellulitis Time Seen by Provider: 10/15/18 21:02 Source: patient - Immun/Allergies/Home Medications Immunizations: IMMUNIZATION HX Immunizations Up to Date Yes History of Influenza Vaccine No Hx Pneumococcal Vaccination No Allergies/Adverse Reactions: Allergies Allergy/AdvReac Type Severity Reaction Status Date / Time No Known Allergies Allergy Verified 10/15/18 20:45 Home Medications: HOME MEDICATIONS Linagliptin/Metformin HCl [Jentadueto 2.5 mg-850 mg Tab] 1 ea PO BIDWM 10/08/18 [Last Taken Unknown] Albuterol Sulfate [Proventil Hfa] 2 puff INHALATION Q6H PRN 10/11/18 [Last Taken Unknown] Aspirin [Aspirin EC] 81 mg PO DAILY 10/11/18 [Last Taken Unknown] Gabapentin 600 mg PO TID 10/11/18 [Last Taken Unknown] Gemfibrozil 600 mg PO BID 10/11/18 [Last Taken Unknown] Insulin Aspart [Novolog Flexpen] 20 unit SQ AC 10/11/18 [Last Taken Unknown] Insulin Glargine,Hum.rec.anlog [Lantus Solostar] 43 unit SQ HS 10/11/18 [Last Taken Unknown] Ipratropium/Albuterol Sulfate [Iprat-Albut 0.5-3(2.5) mg/3 ml] 3 ml INHALATION QID PRN 10/11/18 [Last Taken Unknown] Lisinopril [Zestril] 30 mg PO DAILY 10/11/18 [Last Taken Unknown] Metoprolol Tartrate 50 mg PO BID 10/11/18 [Last Taken Unknown] Mirtazapine [Remeron] 30 mg PO HS 10/11/18 [Last Taken Unknown] Naproxen 375 mg PO BID 10/11/18 [Last Taken Unknown] Sertraline HCl [Zoloft] 100 mg PO DAILY 10/11/18 [Last Taken Unknown] risperiDONE [Risperdal] 2 mg PO HS 10/11/18 [Last Taken Unknown] traZODone HCL [Desyrel] 50 mg PO HS 10/11/18 [Last Taken Unknown] Clindamycin HCl 600 mg PO Q8H 7 Days #21 cap 10/13/18 [Last Taken Unknown] - History of Present Illness Narrative: This is a 53-year-old gentleman diabetic comes to the ER complaining of right foot pain and swelling with redness as well as a fever to 102 last night. The patient has had a very rough week and a half. He reports that he was seen at [facility] about a week to 10 days ago after stepping on a seashell. He had them clean it just the skin he says and put some antibiotic ointment on went home. A few days later he started to develop cellulitis. He was seen in the hospital here and admitted. He was placed on IV antibiotics and seemed to be doing better so he was discharged home. He came back 48 hours later with a cellulitis getting out of control. He was on IV antibiotics for couple of days. He had an exploration which removed a foreign body from the foot. He was then sent home and on home oral antibiotics. He is back with the same symptoms now for the third time. He is noticed some drainage in the plantar aspect of the webspace between the third and fourth toes. He is got pain up to his mid esparza. Redness only involving the foot swelling of the ankle. No other complaints except the fever. Been taking Tylenol ibuprofen for the fever but it has been helping with the pain. Says sugars have been up in the 350s since he has had the infection. He is been jew about taking antibiotics but no help Review of Systems - Review of Systems Constitutional: Present: fever, malaise EYE: Present: no symptoms reported ENT: Present: no symptoms reported Respiratory: Present: no symptoms reported Cardiology: Present: no symptoms reported Gastrointestinal/Abdominal: Present: no symptoms reported Genitourinary: Present: no symptoms reported Musculoskeletal: Present: See HPI Skin: Present: See HPI Neurological: Present: no symptoms reported. Absent: weakness, numbness, tingling Endocrine: Present: no symptoms reported Hematologic/Lymphatic: Present: no symptoms reported Psych: Present: no symptoms reported All Other Systems: All systems neg except as marked Medical History (Updated 10/11/18 @ 17:10 by Tere Oneill MD) COPD (chronic obstructive pulmonary disease) Diabetes Heart murmur Hypercholesteremia Hypertension Surgical History: Surgical History (Updated 10/11/18 @ 13:37 by Yasmeen Mccrary DPM) Knee pain cleaned out staph infection Right foot pain cleaned out staph infection Right hip pain cleaned out staph infection Family History: Family History (Updated 10/08/18 @ 15:17 by Maria Pelaez RN) Mother Diabetes Father Lung cancer Grandfather Myocardial infarction Social History: Preferred Language Yoruba Do you have any jew or No cultural preference? Smoking Status Current every day smoker Alcohol Use none Drug Use none No Social History Section defined Physical Exam - Physical Exam General Appearance: Present: wd/wn, alert, no apparent distress Head Exam: Present: normal inspection, no evidence of injury Eye Exam: Normal inspection: bilateral, PERRL: bilateral, EOMI: bilateral Ears, Nose, Throat: Present: normal ENT inspection, normal pharynx, dry mucous membranes Neck: Present: normal inspection Respiratory: Present: no respiratory distress, normal breath sounds, lungs clear Cardiovascular/Chest: Present: other - 2/6 systolic murmur best heard over the the left lower sternal border. Tachycardic around 110 Gastrointestinal/Abdominal: Present: normal bowel sounds, nontender Back Exam: Present: normal inspection, normal range of motion, no vertebral tenderness Extremity Exam: Present: other - Patient has cellulitis and swelling from the midfoot distally to the right foot. Dorsum greater than plantar. Significant swelling in this area as well. Mild swelling up to the ankle. Tender to palpation to the mid esparza. The skin is warm only over the area of maximum erythema. A small amount of drainage from the plantar aspect of the webspace between the fourth and fifth digits. Neurological Exam: Present: alert, oriented, normal mood/affect, no motor/sensory deficits Skin Exam: Present: other - Cellulitis as described above Lymphatic Exam: Present: no adenopathy Progress - Results and Orders Patient's Lab Results:: I have reviewed the patient's lab results. - Vital Signs Patient's Vital Signs:: I have reviewed the patient's vital signs. Vital Signs: Vital Signs 10/15/18 20:42 Temperature 37.0 C Pulse Rate 113 H Respiratory Rate 15 Blood Pressure 153/97 H O2 Sat by Pulse Oximetry 98 - X-Ray X-Ray #1 X-Ray: foot Interpretation: Interp. by me X-ray Comments: No subcutaneous gas collection or significant changes of the bone which might indicate osteomyelitis - Progress/Reassessment Chief Complaint: Cellulitis Plan - Plan Plan: 53-year-old gentleman back for his third time after failing home antibiotics twice for foot cellulitis. MRI done during last hospitalization shows a possibility of very very early osteomyelitis involving the medial head of the fifth metatarsal and the lateral head of the fourth metatarsal. Recommended repeat MRI. He is been placed on Zosyn and Vanco. Pain is under control. C ultures were done. I discussed with Dr. Jimenez who is graciously agreed to accept the patient. He agrees with vancomycin and Zosyn even though the patient grew out a simple staph species. I am not convinced that the staff is actually the cause of the infection. I wonder whether Pseudomonas is also a concern? I related my concern that the patient will likely need home IV therapy. I also related my concern that the patient should be evaluated by podiatry or orthopedics. I will write orders for transitioning overnight Departure Clinical Impression: Cellulitis of foot - Departure Disposition: Still a patient Condition: Fair Referrals: Michaelle Heart ARNP [Primary Care Provider] -
[2018-10-15 21:32] LABS: Hemoglobin 15.6 gm/dL (13.5-18.0); Mean Cell Volume 90.7 fl (78-100); Mean Corpuscular Hemoglobin 30.1 pg (27-31); Mean Corpuscular Hgb Conc 33.2 g/dl (32-36); Mean Platelet Volume 9.2 fl (8-11.3); Neutrophil # 10.9 K/mm3 (1.3-6.0); Neutrophil % 67.7 % (42-75.0); Platelet Count 370 K/mm3 (150-450); Red Blood Count 5.18 M/mm3 (4.7-6.0); Red Cell Distribution Width 11.9 % (11.5-14.0); White Blood Count 16.2 K/mm3 (4.0-10.5)
[2018-10-15 21:46] LABS: Albumin * 3.2 gm/dl (3.4-5.0); Anion Gap 13.1 mmol/L (6.8-13.8); BUN/Creatinine Ratio 16.5 (9.0-21.6); Bilirubin, Total 0.4 mg/dL (0.0-1.1); Ca. Corrected For Albumin 9.4 mg/dL (8.4-10.2); Calcium * 9.1 mg/dL (7.9-10.9); Carbon Dioxide 26.9 mmol/L (24-32.6); Total Protein 8.2 gm/dL (6.2-8.2)
[2018-10-16] MEDS ORDERED: VANCOMYCIN HCL 1 GM in DEXTROSE 5 % IN WATER 250 ML IV ONE ×2 (03:00)
[2018-10-16] MEDS: HYDROcodone/ACETAMINOPHEN 1 EACH TABLET PO PRN ×5 (03:16→22:45)
[2018-10-16] MEDS: PIPERACILLIN SODIUM/TAZOBACTAM 3.375 GM in DEXTROSE 5 % IN WATER 100 ML IV SCH ×6 (05:40→21:45)
--- NOTE | 2018-10-16 07:18 | HP ---
Chief Complaint - Chief Complaint Date of Service: 10/16/18 Time of Service: 07:18 Chief Complaint: right foot pain History of Present Illness: Chris nicole is 53-year-old white male patient of [facility] in [place] with past medical history of COPD, diabetes mellitus type 2, recurrent cellulitis with failed outpatient treatment who was admitted on 10/15/2018 because of right foot pain and discharge. The patient was just discharged from the hospital 3 to 4 days ago for recurrent cellulitis after receiving IV antibiotics. His culture grew MRSA and was sent home on Clindamycin. Yesterday the patient developed a fever of 102 and experience right foot pain with swelling and redness. He also noticed a yellowish-greenish discharge from the plantar aspect of his his fifth toe area mixed with some blood. This is associated with pain in his mid esparza. He has been taking Tylenol and ibuprofen for his pain and fever. He went back to our emergency room where he was found to have a white blood cell count of 16.2, random blood sugar of 288. His T-max in the emergency room was 37.9. He was then admitted for IV antibiotics. Medical History (Updated 10/16/18 @ 07:56 by Edward Jimenez MD) COPD (chronic obstructive pulmonary disease) Diabetes Heart murmur Hypercholesteremia Hypertension Surgical History: Surgical History (Updated 10/11/18 @ 13:37 by Yasmeen Mccrary DPM) Knee pain cleaned out staph infection Right foot pain cleaned out staph infection Right hip pain cleaned out staph infection Family History: Family History (Updated 10/08/18 @ 15:17 by Maria Pelaez RN) Mother Diabetes Father Lung cancer Grandfather Myocardial infarction Social History: Patient Lives/Resources w/ family Utilized Occupation disabled Preferred Language Bulgarian Do you have any worship or Yes: Pentacostal cultural preference? Smoking Status Current every day smoker Have you smoked in the past 12 Yes months Alcohol Use none Drug Use none No Social History Section defined Review Of Systems (GEN) - Review of Systems Generalized/Overall Review: Present: Chills, Fever EENTM: Absent: Blurred Vision Respiratory: Present: Cough. Absent: Shortness of Breath, Orthopnea Cardiac: Present: Edema. Absent: Chest Pain, Palpitations Abdominal: Absent: Nausea, Vomiting Genitourinary: Absent: Urgency, Frequency Musculoskeletal: Present: Joint Pain. Absent: Back Pain Neurological: Absent: Headache Skin: Present: Other - ulcer. Absent: Rash Endocrine: Absent: Intolerance to Cold, Intolerance to Heat Misc: All systems neg except as marked Immunizations: IMMUNIZATION HX Immunizations Up to Date Yes History of Influenza Vaccine No Hx Pneumococcal Vaccination No Allergies/Adverse Reactions: Allergies Allergy/AdvReac Type Severity Reaction Status Date / Time No Known Allergies Allergy Verified 10/15/18 23:23 Home Medications: HOME MEDICATIONS Linagliptin/Metformin HCl [Jentadueto 2.5 mg-850 mg Tab] 1 ea PO BIDWM 10/08/18 [Last Taken Unknown] Albuterol Sulfate [Proventil Hfa] 2 puff INHALATION Q6H PRN 10/11/18 [Last Taken Unknown] Aspirin [Aspirin EC] 81 mg PO DAILY 10/11/18 [Last Taken Unknown] Gabapentin 600 mg PO TID 10/11/18 [Last Taken Unknown] Gemfibrozil 600 mg PO BID 10/11/18 [Last Taken Unknown] Insulin Aspart [Novolog Flexpen] 20 unit SQ 10/11/18 [Last Taken Unknown] Insulin Glargine,Hum.rec.anlog [Lantus Solostar] 43 unit SQ HS 10/11/18 [Last Taken Unknown] Ipratropium/Albuterol Sulfate [Iprat-Albut 0.5-3(2.5) mg/3 ml] 3 ml INHALATION QID PRN 10/11/18 [Last Taken Unknown] Lisinopril [Zestril] 30 mg PO DAILY 10/11/18 [Last Taken Unknown] Metoprolol Tartrate 50 mg PO BID 10/11/18 [Last Taken Unknown] Mirtazapine [Remeron] 30 mg PO HS 10/11/18 [Last Taken Unknown] Naproxen 375 mg PO BID 10/11/18 [Last Taken Unknown] Sertraline HCl [Zoloft] 100 mg PO DAILY 10/11/18 [Last Taken Unknown] risperiDONE [Risperdal] 2 mg PO HS 10/11/18 [Last Taken Unknown] traZODone HCL [Desyrel] 50 mg PO HS 10/11/18 [Last Taken Unknown] Clindamycin HCl 600 mg PO Q8H 7 Days #21 cap 10/13/18 [Last Taken Unknown] Exam - Exam Vital Signs: Vital Signs - Last Taken Temp 36.8 C 10/16/18 06:48 Pulse 87 10/16/18 06:48 Resp 16 10/16/18 06:48 BP 144/90 H 10/16/18 06:48 Pulse Ox 97 10/16/18 06:48 Constitutional: Present: Alert, Oriented x3, Cooperative ENT Exam: Present: hearing grossly normal Eye Exam: bilateral eye: normal inspection, PERRL, EOMI Neck: Present: supple Respiratory: Present: decreased breath sounds, crackles, rhonchi, No rales Cardiovascular/Chest: Present: regular rate, rhythm, no JVD, systolic murmur Abdomen: Present: Normal bowel sounds, soft, nontender, nondistended Extremity: Present: no calf tenderness, pedal edema, other - right forefoot foot wrapped with dry afsaneh, positive swelling with mild erythema ADDENDUM: positice 1 x 1cm ulcer underneath his myra base of his 5th toe, forefoot very tender to touch Diagnostic Studies: Abnormal Lab Results 10/15/18 10/15/18 Range/Units 21:27 21:27 WBC 16.2 H D (4.0-10.5) K/mm3 Immature Gran % (Auto) 0.60 H (0.001-0.429) % Immature Gran # (Auto) 0.10 H (0.000-0.0310) K/mm3 Neutrophils # 10.9 H (1.3-6.0) K/mm3 Lymphocytes # 3.53 H (1.5-3.5) k/mm3 Monocytes # 1.3 H (0.0-1.0) k/mm3 Potassium 5.0 H (3.4-4.6) mmol/L Random Glucose 288 H (70-110) mg/dL Albumin 3.2 L (3.4-5.0) gm/dl Laboratory Results WBC 16.2 K/mm3 (4.0-10.5) H D 10/15/18 21:27 RBC 5.18 M/mm3 (4.7-6.0) 10/15/18 21:27 Hgb 15.6 gm/dL (13.5-18.0) 10/15/18 21:27 Hct 47.0 % (42.0-52.0) 10/15/18 21:27 MCV 90.7 fl (78-100) 10/15/18 21:27 MCH 30.1 pg (27-31) 10/15/18 21: MCHC 33.2 g/dl (32-36) 10/15/18 21:27 RDW 11.9 % (11.5-14.0) 10/15/18 21:27 Plt Count 370 K/mm3 (150-450) 10/15/18 21: MPV 9.2 fl (8-11.3) 10/15/18 21:27 Immature Gran % (Auto) 0.60 % (0.001-0.429) H 10/15/18 21: Immature Gran # (Auto) 0.10 K/mm3 (0.000-0.0310) H 10/15/18 21: 67.7 % (42-75.0) 10/15/18 21: 21.9 % (20-51) 10/15/18 21: 8.2 % (0.0-9) 10/15/18 21:27 1.2 % (0.0-3.0) 10/15/18 21:27 0.4 % (0.0-1.0) 10/15/18 21: Nucleated RBC % 0.0 k/mm3 (0-1) 10/15/18 21:27 10.9 K/mm3 (1.3-6.0) H 10/15/18 21:27 3.53 k/mm3 (1.5-3.5) H 10/15/18 21:27 1.3 k/mm3 (0.0-1.0) H 10/15/18 21:27 0.2 k/mm3 (0.0-0.7) 10/15/18 21: Absolute Basophils 0.1 k/mm3 (0.0-0.1) 10/15/18 21:27 Sodium 135 mmol/L (132-142) 10/15/18 21:27 138 mmol/L (130-142) 10/15/18 21:27 Potassium 5.0 mmol/L (3.4-4.6) H 10/15/18 21:27 Chloride 100 mmol/L (97-106) 10/15/18 21: Carbon Dioxide 26.9 mmol/L (24-32.6) 10/15/18 21:27 13.1 mmol/L (6.8-13.8) 10/15/18 21:27 BUN 20 mg/dL (6-23) D 10/15/18 21:27 1.21 mg/dL (0.4-1.4) 10/15/18 21:27 Est GFR (Non-Af Amer) 66 mL/min (60-130) D 10/15/18 21:27 16.5 (9.0-21.6) 10/15/18 21:27 288 mg/dL (70-110) H 10/15/18 21:27 Calcium 9.1 mg/dL (7.9-10.9) 10/15/18 21:27 Calcium Adj for Albumin 9.4 mg/dL (8.4-10.2) 10/15/18 21:27 0.4 mg/dL (0.0-1.1) 10/15/18 21:27 AST 15 U/L (0-48) 10/15/18 21:27 ALT 26 U/L (19-67) 10/15/18 21:27 93 U/L (50-170) 10/15/18 21:27 8.2 gm/dL (6.2-8.2) 10/15/18 21:27 3.2 gm/dl (3.4-5.0) L 10/15/18 21:27 Assessment/Plan - Narrative Narrative: We will continue with IV Zosyn and IV vanco. Will get Podiatry consult. If OM , will need IV antibiotics for 4-6 weeks or shorter if with surgical intervention to reduce the burden of infection. May need to do a follow MRI. - Assessment/Plan (1) Failure of outpatient treatment Problem: Acute (2) Cellulitis of foot Problem: Acute (3) Diabetic foot ulcer Problem: Acute (4) COPD (chronic obstructive pulmonary disease) Problem: Acute (5) Diabetes Problem: Chronic Qualifiers: Diabetes mellitus type: type 2 Diabetes mellitus alf insulin use: with alf use (6) Hypertension Problem: Chronic Qualifiers: Hypertension type: essential hypertension Qualified Code(s): I10 - Essential (primary) hypertension (7) Hyperlipidemia Problem: Chronic
[2018-10-16] MEDS ORDERED: ALBUTEROL SULFATE/IPRATROPIUM 3 ML NEBU IH PRN (07:59)
[2018-10-16] MEDS ORDERED: ALBUTEROL SULFATE 2.5 MG/0.5 ML VIAL.NEB IH PRN (08:30)
[2018-10-16] MEDS: SERTRALINE HCL 100 MG TABLET PO SCH (09:42)
[2018-10-16] MEDS: GABAPENTIN 300 MG CAPSULE PO SCH ×3 (09:42→17:19)
[2018-10-16] MEDS: METOPROLOL TARTRATE 50 MG TABLET PO SCH ×2 (09:42→21:47)
[2018-10-16] MEDS: LISINOPRIL 10 MG TABLET PO SCH (09:42)
[2018-10-16] MEDS: ASPIRIN 81 MG TABLET.DR PO SCH (09:42)
[2018-10-16] MEDS: INSULIN LISPRO 100 UNITS/ML VIAL SC SCH ×2 (11:59→17:20)
[2018-10-16] MEDS: HYDROPHILIC OINTMENT 454 APPL JAR TP SCH (13:36)
[2018-10-16] MEDS: VANCOMYCIN HCL 1.25 GM in DEXTROSE 5 % IN WATER 250 ML IV SCH ×2 (16:01)
[2018-10-16] MEDS: SACCHAROMYCES BOULARDII 250 MG CAPSULE PO SCH (21:46)
[2018-10-16] MEDS: risperiDONE 1 MG TABLET PO SCH (21:46)
[2018-10-16] MEDS: traZODone HCL 50 MG TABLET PO SCH (21:47)
[2018-10-16] MEDS: INSULIN GLARGINE,HUM.REC.ANLOG 100 UNITS/ML VIAL SC SCH (21:48)
[2018-10-17] MEDS: VANCOMYCIN HCL 1.25 GM in DEXTROSE 5 % IN WATER 250 ML IV SCH ×4 (02:50→16:25)
[2018-10-17] MEDS: HYDROcodone/ACETAMINOPHEN 1 EACH TABLET PO PRN ×3 (02:50→19:02)
[2018-10-17] MEDS: PIPERACILLIN SODIUM/TAZOBACTAM 3.375 GM in DEXTROSE 5 % IN WATER 100 ML IV SCH ×6 (05:01→21:52)
[2018-10-17] MEDS: INSULIN LISPRO 100 UNITS/ML VIAL SC SCH ×3 (06:35→17:05)
[2018-10-17] MEDS: GABAPENTIN 300 MG CAPSULE PO SCH ×3 (08:23→17:05)
[2018-10-17] MEDS: ENOXAPARIN SODIUM 40 MG/0.4 ML SYRG SC SCH (08:23)
[2018-10-17] MEDS: LISINOPRIL 10 MG TABLET PO SCH (08:24)
[2018-10-17] MEDS: METOPROLOL TARTRATE 50 MG TABLET PO SCH ×2 (08:24→21:49)
[2018-10-17] MEDS: SACCHAROMYCES BOULARDII 250 MG CAPSULE PO SCH ×2 (08:24→21:49)
[2018-10-17] MEDS: SERTRALINE HCL 100 MG TABLET PO SCH (08:24)
[2018-10-17] MEDS: ASPIRIN 81 MG TABLET.DR PO SCH (08:24)
--- NOTE | 2018-10-17 09:04 | PN ---
Subjective - Date and Time Seen Date: 10/17/18 Time: 08:58 Subjective Narrative: patient afebrile. still with foot pain/tenderness. Objective - Review of Systems Generalized/Overall Review: Denies: Chills, Fever EENTM: Denies: Blurred Vision Respiratory: Denies: Cough, Shortness of Breath Cardiac: Denies: Chest Pain, Edema, Palpitations Abdominal: Denies: Nausea, Vomiting Genitourinary Symptoms: Denies: Urgency, Frequency Musculoskeletal Complaints: Reports: Joint Pain Neurological: Denies: Headache Skin: Denies: Lesions, Rash Endocrine: Denies: Intolerance to Cold, Intolerance to Heat Misc: All systems neg except as marked - Vitals Vitals: Last Vital Signs Temp 36.6 C 10/17/18 07:08 Pulse 90 10/17/18 08:24 Resp 18 10/17/18 07:08 BP 93/62 10/17/18 08:24 Pulse Ox 94 10/17/18 07:08 - Abnormal Lab Findings Abnormal Lab Findings: Abnormal Lab Results 10/16/18 Range/Units 08:32 ESR 71 H (0-10) mm/hr - Exam Constitutional: Present: Alert, Oriented x3, Cooperative ENT Exam: Present: hearing grossly normal Neck: Present: supple Respiratory: Present: normal breath sounds, No rales, No wheezing Cardiovascular/Chest: Present: regular rate, rhythm, no JVD, no murmur Abdomen: Present: Normal bowel sounds, soft, nontender, nondistended Extremity: Present: no calf tenderness, pedal edema, swelling, other - positive tenderness, positive ulcer, plantar aspect, below base of 5th toe, right foot. Assessment/Plan Plan Narrative: continue with IV antibiotics. foot xray- no acute osseous findings. if OM is suspected do MRI. culture growing Staph species and alpha hemolytic strep species. will consult with Podiatry. - Problems/Diagnosis (1) Failure of outpatient treatment Problem: Acute (2) Cellulitis of foot Problem: Acute (3) Diabetic foot ulcer Problem: Acute (4) COPD (chronic obstructive pulmonary disease) Problem: Acute (5) Diabetes Problem: Chronic Qualifiers: Diabetes mellitus type: type 2 Diabetes mellitus intermediate insulin use: with intermediate use (6) Hypertension Problem: Chronic Qualifiers: Hypertension type: essential hypertension Qualified Code(s): I10 - Essential (primary) hypertension (7) Hyperlipidemia Problem: Chronic
[2018-10-17 09:17] LABS: Hematocrit 42.2 % (42.0-52.0); Hemoglobin 14.1 gm/dL (13.5-18.0); Mean Cell Volume 90.4 fl (78-100); Mean Corpuscular Hemoglobin 30.2 pg (27-31); Mean Corpuscular Hgb Conc 33.4 g/dl (32-36); Mean Platelet Volume 8.9 fl (8-11.3); Neutrophil # 7.8 K/mm3 (1.3-6.0); Neutrophil % 66.6 % (42-75.0); Platelet Count 336 K/mm3 (150-450); Red Blood Count 4.67 M/mm3 (4.7-6.0); Red Cell Distribution Width 11.9 % (11.5-14.0); White Blood Count 11.7 K/mm3 (4.0-10.5)
[2018-10-17 09:33] LABS: Anion Gap 13.5 mmol/L (6.8-13.8); BUN/Creatinine Ratio 18.5 (9.0-21.6); Carbon Dioxide 25.6 mmol/L (24-32.6); Estimated Creat Clear 80.4; Potassium 4.1 mmol/L (3.4-4.6)
[2018-10-17] MEDS: HYDROPHILIC OINTMENT 454 APPL JAR TP SCH (11:39)
--- NOTE | 2018-10-17 12:10 | PN ---
Hillary Note - Interim Date: 10/17/18 Time: 12:07 Narrative: 10/17/18 12:07 Discussed with radiology about MRI- we may or may not see OM changes at this time. Discussed with Dr. Mccrary- she saw the patient and she will await MRI .
--- NOTE | 2018-10-17 16:33 | CONS ---
- Reason for consultation (1) Puncture wound of foot excluding toes with infection Date of Service: 10/17/18 (2) Cellulitis of right foot Date of Service: 10/17/18 HPI - General Narrative: Patient presented to the ED on 10/15/18 for c/o worsening redness, swelling and pain to the right foot following hospital discharge on oral antibiotics. He had originally been seen at [facility] ED several days ago following stepping on a seashell. Relates the retained piece of seashell was removed in the ED, a dressing was applied, and he was sent home with oral Augmentin. His symptoms progressively worsened, and he came to [facility] ED on 10/08/18, and was admitted for IV ABX therapy following failed outpatient care. After a couple of days, his symptoms had resolved, and he was discharged on oral Bactrim. Following his discharge, he has again progressively worsened, with increased redness, swelling, and pain in the right foot. He again presented to the ED on 10/11/18. Xrays were obtained on presentation, and there was no retained foreign body present, however there were concerns of possible small abscess around the puncture site. He was again admitted, and an MRI was obtained. It did show some enhancement of the 4th/5th metatarsal heads on T2, however no marrow replacement on T1 images. Treatment was discussed with pt, and he elected to go home on oral clindamycin, as his cultures were showing MRSA, sensitive to clindamycin. He again developed worsening of his condition and returned to the ED on 10/15/18. There was noted to be a new ulcerated site between his 4th and 5th toes that was not present prior to his discharge home. He was again admitted and was scheduled for a repeat MRI this afternoon due to worsening condition. Cultures from the new ulcerated site between his toes also obtained, now growing strep. Patient has h/o DM, and is a smoker. States that he has h/o staph infection at a young age that almost killed him. His previous cultures were positive for MRSA. Source: patient Exam Limitations: no limitations - History of Present Illness Timing/Duration: getting worse Allergies/Adverse Reactions: Allergies No Known Allergies Allergy (Verified 10/15/18 23:23) Home Medications: Home Medications Medication Instructions Recorded Last Taken Linagliptin/Metformin HCl 1 ea PO BIDWM 10/08/18 Unknown [Jentadueto 2.5 mg-850 mg Tab] Albuterol Sulfate [Proventil Hfa] 2 puff INHALATION Q6H PRN 10/11/18 Unknown Aspirin [Aspirin EC] 81 mg PO DAILY 10/11/18 Unknown Gabapentin 600 mg PO TID 10/11/18 Unknown Gemfibrozil 600 mg PO BID 10/11/18 Unknown Insulin Aspart [Novolog Flexpen] 20 unit SQ AC 10/11/18 Unknown Insulin Glargine,Hum.rec.anlog 43 unit SQ HS 10/11/18 Unknown [Lantus Solostar] Ipratropium/Albuterol Sulfate 3 ml INHALATION QID PRN 10/11/18 Unknown [Iprat-Albut 0.5-3(2.5) mg/3 ml] Lisinopril [Zestril] 30 mg PO DAILY 10/11/18 Unknown Metoprolol Tartrate 50 mg PO BID 10/11/18 Unknown Mirtazapine [Remeron] 30 mg PO HS 10/11/18 Unknown Naproxen 375 mg PO BID 10/11/18 Unknown Sertraline HCl [Zoloft] 100 mg PO DAILY 10/11/18 Unknown risperiDONE [Risperdal] 2 mg PO HS 10/11/18 Unknown traZODone HCL [Desyrel] 50 mg PO HS 10/11/18 Unknown Clindamycin HCl 600 mg PO Q8H 7 Days #21 cap 10/13/18 Unknown Procedures Excision of Right Foot Skin, External Approach (10/11/18) Spinal tap (02/21/01) Medications - Medications Current Medications: Current Medications Hydrocodone Bitart/Acetaminophen ([place] 5-325) 1 each PO Q4H PRN PRN Reason: Pain Stop: 11/15/18 03:04 Last Admin: 10/17/18 12:08 Dose: 1 each Documented by: Aspirin (Aspirin Enteric Coated) 81 mg PO DAILY [facility] Stop: 11/15/18 09:01 Last Admin: 10/17/18 08:24 Dose: 81 mg Documented by: Enoxaparin Sodium (Lovenox) 40 mg SC Q24H [facility] Stop: 11/16/18 07:31 Last Admin: 10/17/18 08:23 Dose: 40 mg Documented by: Gabapentin (Neurontin) 600 mg PO TID [facility] Stop: 11/15/18 09:01 Last Admin: 10/17/18 12:05 Dose: 600 mg Documented by: Vancomycin HCl 1.25 gm/ (Dextrose/Water) 250 mls @ 140 mls/hr IV Q12H [facility]; Protocol Stop: 11/15/18 15:01 Last Infusion: 10/17/18 05:00 Dose: Infused Documented by: Piperacillin Sod/Tazobactam (Sod 3.375 gm/ Dextrose/Water) 100 mls @ 25 mls/hr IV Q8H [facility]; Protocol Stop: 11/15/18 05:01 Last Admin: 10/17/18 13:39 Dose: 25 mls/hr Documented by: Insulin Glargine (Lantus) 43 units SC [facility] Stop: 11/15/18 21:01 Last Admin: 10/16/18 21:48 Dose: 43 units Documented by: Insulin Human Lispro (Humalog) 20 units SC [facility] Stop: 11/15/18 11:01 Last Admin: 10/17/18 11:39 Dose: 20 units Documented by: Lisinopril (Zestril) 30 mg PO DAILY [facility] Stop: 11/15/18 09:01 Last Admin: 10/17/18 08:24 Dose: 30 mg Documented by: Metoprolol Tartrate (Lopressor) 50 mg PO BID [facility] Stop: 11/15/18 09:01 Last Admin: 10/17/18 08:24 Dose: 50 mg Documented by: Multi-Ingredient Ointment (Aquaphilic Ointment) 1 appl TP DAILY [facility] Stop: 11/15/18 13:16 Last Admin: 10/17/18 11:39 Dose: 1 appl Documented by: Risperidone (Risperdal) 2 mg PO [facility] Stop: 11/15/18 21:01 Last Admin: 10/16/18 21:46 Dose: 2 mg Documented by: Saccharomyces Boulardii (Florastor) 250 mg PO BID [facility] Stop: 11/15/18 21:01 Last Admin: 10/17/18 08:24 Dose: 250 mg Documented by: Sertraline HCl (Zoloft) 100 mg PO DAILY [facility] Stop: 11/15/18 09:01 Last Admin: 10/17/18 08:24 Dose: 100 mg Documented by: Trazodone HCl (Desyrel) 50 mg PO [facility] Stop: 11/15/18 21:01 Last Admin: 10/16/18 21:47 Dose: 50 mg Documented by: Review of Systems - Review of Systems Generalized/Overall Review: Absent: Chills, Fever Respiratory: Absent: Shortness of Breath Cardiac: Present: Edema Abdominal: Absent: Nausea, Vomiting, Diarrhea Musculoskeletal: Present: Other - right foot pain Skin: Present: Other - redness and swelling right foot, puncture wound right foot Physical Examination - Exam Narrative: MRI reviewed, agree with report as follows: 1. Interval progression of soft tissue abnormality predominately centered adjacent to the plantar aspect of the fourth MTP joint, with a component intercalated between the fourth and fifth metatarsal head, concerning for progression of soft tissue phlegmon versus early abscess as discussed above. 2. Interval progression of marrow edema at the fourth and fifth proximal ph alanges. There is also small amount of joint effusion at the fifth MTP joint, with synovial enhancement suggested on the fourth and fifth MTP joints. Consider progression of osteomyelitis/septic arthritis. Vital Signs: Vital Signs - Last Taken Temp 36.6 C 10/17/18 10:00 Pulse 81 10/17/18 10:00 Resp 20 10/17/18 10:00 BP 111/68 10/17/18 10:00 Pulse Ox 94 10/17/18 10:00 O2 Oxygen Delivery Method Room Air Constitutional: Present: Alert, Oriented x3, Cooperative Peripheral Pulses: dorsalis-pedis (R): 2+ Extremity: Present: pedal edema, other - right foot pain Skin Exam: Present: other - Puncture site to plantar right forefoot sub area of 4th metatarsal head with hyperkeratotic tissue overgrowth. Upon removal of hyperkeratotic tissue, a small abscess is noted, with purulent drainage expressed from the puncture site. After removal of all devitalized/hyperkeratotic tissue, puncture site measures 0.3 x 0.3 x 0.2 cm. Tissue appears red, granular following drainage of purulence. Surrounding tissue is hyperkeratotic, with erythema extending from the puncture site into the dorsum of the foot surrounding the 3rd-5th MtPJ's, most pronounced about the 4th/5th MtPJ. There is significant pain on palpation, and warmth to touch. There is a new ulceration that has developed between the 4th and 5th toes, now with dry eschar tissue. Unable to obtain accurate measurements of this area due to pain with manipulation of the toes. There is no active drainage on exam of this area. Appearance: Present: appropriate appearance Eye contact: Present: cooperative - Results and Findings: Lab/Microbiology results last 24 hrs: Abnormal/Pending Laboratory Last 24 HRS 10/17/18 10/17/18 09:15 09:15 WBC 11.7 H D RBC 4.67 L Immature Gran % (Auto) 0.90 H Immature Gran # (Auto) 0.10 H Neutrophils # 7.8 H Random Glucose 216 H Culture 10/15/18 21:45 Wound Culture - Preliminary Foot - Right Alpha Hemolytic Strep Staphylococcus Species 10/15/18 21:58 Blood Culture - Preliminary Blood NO GROWTH 24 HOURS 10/15/18 21:27 Blood Culture - Preliminary Blood NO GROWTH 24 HOURS 10/15/18 01:00 - Final Nares MRSA Positive - Assessments/Findings (1) Puncture wound of foot excluding toes with infection Diagnosis(s): Discussed with patient treatment plan moving forward. Puncture site selectively debrided with #15 blade, removing overlying devitalized, hyperkeratotic tissue revealing a healthy, bleeding wound bed, as well as expressing purulence present. Flushed with saline. Dry dressing applied. Area to be kept clean with soap and water daily. May continue with daily dressing changes with Aquacel Ag, dry gauze, meenakshi, and JULIANA bandage. MRI reviewed. With worsening of condition as well as worsening of findings on MRI, would advise surgical care. Discussed surgical options with pt in detail, including simple I&D with removal of infected tissue/bone only vs possible amputation of 4th and 5th toes. Risks and benefits discussed at length. There are no guarantees that this will eliminate his current issues, however with his recurrent infections and failure of outpatient care, I believe surgery is a good option for him. After much discussion, patient has elected to proceed with I&D and removal of infected tissue and bone only. Will discuss case with OR, and will add on when time available and my schedule allows, likely this Wednesday. Patient is on board with waiting until Wednesday for surgery, and discussed that the longer he is on IV ABX, the better his outcomes will likely be. Will plan to move surgical date up if scheduling allows, or if condition worsens. Problem: Acute Qualifiers: Encounter type: subsequent encounter Laterality: right Qualified Code(s): S91.331D - Puncture wound without foreign body, right foot, subsequent encounter; L08.9 - Local infection of the skin and subcutaneous tissue, unspecified (2) Cellulitis of right foot Diagnosis(s): Continue current ABX. Adjust pending culture results. Problem: Acute
--- NOTE | 2018-10-17 17:28 | ANES ---
Anesthesia Procedure Note Procedure Note: ANESTHESIA PROCEDURE NOTE Date of procedure: 10/17/2018. Time of procedure: 1720. Performed by: Gareth Obrien CRNA Rehabilitation Liaison: None . Preprocedure diagnosis: Left foot cellulitis. Difficult IV access. Post procedure diagnosis: Same. Procedure: IV start Indications: Difficult IV access. Findings: 22-gauge Angiocath IV started in patient's left wrist EBL: Minimal. Fluids: N/A. Specimen: N/A. Post procedure condition: The patient tolerated the procedure well. No complications were noted. Thank you for this consultation Gareth Obrien CRNA
[2018-10-17] MEDS: INSULIN GLARGINE,HUM.REC.ANLOG 100 UNITS/ML VIAL SC SCH (21:45)
[2018-10-17] MEDS: traZODone HCL 50 MG TABLET PO SCH (21:48)
[2018-10-17] MEDS: risperiDONE 1 MG TABLET PO SCH (21:50)
[2018-10-18] MEDS: VANCOMYCIN HCL 1.25 GM in DEXTROSE 5 % IN WATER 250 ML IV SCH ×4 (02:59→16:10)
[2018-10-18] MEDS: PIPERACILLIN SODIUM/TAZOBACTAM 3.375 GM in DEXTROSE 5 % IN WATER 100 ML IV SCH ×2 (04:44)
[2018-10-18] MEDS: HYDROcodone/ACETAMINOPHEN 1 EACH TABLET PO PRN ×3 (06:57→18:56)
[2018-10-18] MEDS: INSULIN LISPRO 100 UNITS/ML VIAL SC SCH ×3 (06:59→17:27)
[2018-10-18] MEDS: ENOXAPARIN SODIUM 40 MG/0.4 ML SYRG SC SCH (07:00)
[2018-10-18 07:50] LABS: Anion Gap 15.9 mmol/L (6.8-13.8); BUN/Creatinine Ratio 17.5 (9.0-21.6); Calcium * 9.4 mg/dL (7.9-10.9); Carbon Dioxide 24.8 mmol/L (24-32.6); Estimated Creat Clear 69.8; Hematocrit 44.6 % (42.0-52.0); Hemoglobin 14.8 gm/dL (13.5-18.0); Mean Cell Volume 90.1 fl (78-100); Mean Corpuscular Hemoglobin 29.9 pg (27-31); Mean Corpuscular Hgb Conc 33.2 g/dl (32-36); Mean Platelet Volume 9.2 fl (8-11.3); Neutrophil # 6.8 K/mm3 (1.3-6.0); Neutrophil % 61.5 % (42-75.0); Platelet Count 376 K/mm3 (150-450); Potassium 4.7 mmol/L (3.4-4.6); Red Blood Count 4.95 M/mm3 (4.7-6.0); Red Cell Distribution Width 11.9 % (11.5-14.0); White Blood Count 11.1 K/mm3 (4.0-10.5)
[2018-10-18] MEDS: GABAPENTIN 300 MG CAPSULE PO SCH ×3 (08:49→17:27)
[2018-10-18] MEDS: HYDROPHILIC OINTMENT 454 APPL JAR TP SCH (08:49)
[2018-10-18] MEDS: SACCHAROMYCES BOULARDII 250 MG CAPSULE PO SCH ×2 (08:49→22:25)
[2018-10-18] MEDS: SERTRALINE HCL 100 MG TABLET PO SCH (08:49)
[2018-10-18] MEDS: ASPIRIN 81 MG TABLET.DR PO SCH (08:50)
--- NOTE | 2018-10-18 09:11 | PN ---
Subjective - Date and Time Seen Date: 10/18/18 Time: 09:04 Subjective Narrative: Patient afebrile. WBC down. Cr up. CS growing Enterococcus and staph species. Objective - Review of Systems Generalized/Overall Review: Denies: Chills, Fever EENTM: Denies: Blurred Vision Respiratory: Denies: Cough, Shortness of Breath Cardiac: Denies: Chest Pain, Edema, Palpitations Abdominal: Denies: Nausea, Vomiting Genitourinary Symptoms: Denies: Urgency, Frequency Musculoskeletal Complaints: Reports: Joint Pain Neurological: Denies: Headache Skin: Denies: Lesions, Rash Endocrine: Denies: Intolerance to Cold, Intolerance to Heat Misc: All systems neg except as marked - Vitals Vitals: Last Vital Signs Temp 36.8 C 10/18/18 08:41 Pulse 79 10/18/18 08:41 Resp 18 10/18/18 08:41 BP 99/52 10/18/18 08:41 Pulse Ox 95 10/18/18 08:41 - Abnormal Lab Findings Abnormal Lab Findings: Abnormal Lab Results 10/17/18 10/17/18 10/18/18 Range/Units 09:15 09:15 07:33 WBC 11.7 H D 11.1 H (4.0-10.5) K/mm3 RBC 4.67 L (4.7-6.0) M/mm3 Immature Gran % (Auto) 0.90 H 0.90 H (0.001-0.429) % Immature Gran # (Auto) 0.10 H 0.10 H (0.000-0.0310) K/mm3 Neutrophils # 7.8 H 6.8 H (1.3-6.0) K/mm3 Potassium (3.4-4.6) mmol/L Anion Gap (6.8-13.8) mmol/L BUN (6-23) mg/dL Creatinine (0.4-1.4) mg/dL Est GFR (Non-Af Amer) (60-130) mL/min Random Glucose 216 H (70-110) mg/dL 10/18/18 Range/Units 07:33 WBC (4.0-10.5) K/mm3 RBC (4.7-6.0) M/mm3 Immature Gran % (Auto) (0.001-0.429) % Immature Gran # (Auto) (0.000-0.0310) K/mm3 Neutrophils # (1.3-6.0) K/mm3 Potassium 4.7 H (3.4-4.6) mmol/L Anion Gap 15.9 H (6.8-13.8) mmol/L BUN 25 H (6-23) mg/dL Creatinine 1.43 H (0.4-1.4) mg/dL Est GFR (Non-Af Amer) 55 L (60-130) mL/min Random Glucose 200 H (70-110) mg/dL - Exam Constitutional: Present: Alert, Oriented x3, Cooperative Neck: Present: supple Respiratory: Present: normal breath sounds, No rales, No wheezing Cardiovascular/Chest: Present: regular rate, rhythm, no JVD, no murmur Abdomen: Present: Normal bowel sounds, soft, nontender, nondistended Extremity: Present: no calf tenderness, pedal edema, swelling - forefoot with ulcer Assessment/Plan Plan Narrative: MRI shows possible abscess, OM/septic arthritis. Podiatry on his case and will do surgery soon. will d/c zosyn and continue with Vanco. for vanco level today. - Problems/Diagnosis (1) Elevated serum creatinine Problem: Acute Narrative: likely medicine induced- Vanco and Zosyn. hold Zosyn for now . (2) Failure of outpatient treatment Problem: Acute (3) Cellulitis of foot Problem: Acute Narrative: MRI shows progression of soft tissue abnormality/phlegmon possible abscess formation; progrossion of bone marrow edema concerning for OM; joint MTP effusion possible septic arthritis. Patient is for incision/dainage, debridement ,irrigation. (4) Diabetic foot ulcer Problem: Acute (5) COPD (chronic obstructive pulmonary disease) Problem: Acute (6) Diabetes Problem: Chronic Qualifiers: Diabetes mellitus type: type 2 Diabetes mellitus intermediate school teacher insulin use: with intermediate school teacher use (7) Hypertension Problem: Chronic Qualifiers: Hypertension type: essential hypertension Qualified Code(s): I10 - Essential (primary) hypertension (8) Hyperlipidemia Problem: Chronic
[2018-10-18] MEDS: METOPROLOL TARTRATE 50 MG TABLET PO SCH ×2 (11:55→22:35)
[2018-10-18] MEDS: LISINOPRIL 10 MG TABLET PO SCH (11:56)
--- NOTE | 2018-10-18 13:07 | PN ---
Subjective - Date and Time Seen Date: 10/18/18 Subjective Narrative: Pt seen at bedside resting. States that he continues to feel better, however did have some burning sensations in his feet over night, resolved at this time. Is still on board with surgery as discussed yesterday. Objective - Review of Systems Generalized/Overall Review: Denies: Chills, Fever Respiratory: Denies: Shortness of Breath Cardiac: Denies: Edema Abdominal: Denies: Nausea, Vomiting, Diarrhea Musculoskeletal Complaints: Reports: Other - right foot pain Skin: Reports: Other - puncture wound right foot, ulceration right foot, redness right foot - Vitals Vitals: Last Vital Signs Temp 36.8 C 10/18/18 10:00 Pulse 80 10/18/18 11:56 Resp 18 10/18/18 10:00 BP 102/64 10/18/18 11:56 Pulse Ox 94 10/18/18 10:00 - Abnormal Lab Findings Abnormal Lab Findings: Abnormal Lab Results 10/18/18 10/18/18 Range/Units 07:33 07:33 WBC 11.1 H (4.0-10.5) K/mm3 Immature Gran % (Auto) 0.90 H (0.001-0.429) % Immature Gran # (Auto) 0.10 H (0.000-0.0310) K/mm3 Neutrophils # 6.8 H (1.3-6.0) K/mm3 Potassium 4.7 H (3.4-4.6) mmol/L Anion Gap 15.9 H (6.8-13.8) mmol/L BUN 25 H (6-23) mg/dL Creatinine 1.43 H (0.4-1.4) mg/dL Est GFR (Non-Af Amer) 55 L (60-130) mL/min Random Glucose 200 H (70-110) mg/dL - Exam Constitutional: Present: Alert, Oriented x3, Cooperative Extremity: Present: other - right foot pain Skin Exam: Present: other - Puncture site to plantar right forefoot sub area of 4th metatarsal head unchanged. Tissue appears red, granular. Surrounding tissue still with slight erythema extending from the puncture site into the dorsum of the foot surrounding the 3rd-5th MtPJ's, most pronounced about the 4th/5th MtPJ - slightly improved. There remains pain on palpation, and warmth to touch. New ulceration between the 4th and 5th toes, unchanged. Unable to obtain accurate measurements of this area due to pain with manipulation of the toes. There is no active drainage on exam of this area. Appearance: Present: appropriate appearance Eye contact: Present: cooperative Assessment/Plan Plan Narrative: I was able to discuss with OR today anticipated surgery, and we can add on tomorrow afternoon. Discussed this with patient, and he is on board with moving up surgery to tomorrow instead of waiting until Wednesday. Still plan for I&D with removal of infected tissue and bone, right foot. Will be NPO after 6:00am tomorrow morning. Discussed, again, procedure, anesthesia, and recovery. No guarantees given or implied. Pt elects to proceed with surgery tomorrow. Will continue on current ABX pending final culture results. Can adjust when available. - Problems/Diagnosis (1) Puncture wound of foot excluding toes with infection Problem: Acute Qualifiers: Qualified Code(s): S91.331D - Puncture wound without foreign body, right foot, subsequent encounter; L08.9 - Local infection of the skin and subcutaneous tissue, unspecified (2) Cellulitis of right foot Problem: Acute
[2018-10-18] MEDS ORDERED: VANCOMYCIN HCL LEVEL XX ONE (14:30)
[2018-10-18] MEDS: traZODone HCL 50 MG TABLET PO SCH (22:25)
[2018-10-18] MEDS: risperiDONE 1 MG TABLET PO SCH (22:26)
[2018-10-18] MEDS: INSULIN GLARGINE,HUM.REC.ANLOG 100 UNITS/ML VIAL SC SCH (22:34)
[2018-10-19] MEDS: VANCOMYCIN HCL 1.25 GM in DEXTROSE 5 % IN WATER 250 ML IV SCH ×4 (02:52→15:39)
[2018-10-19] MEDS: INSULIN LISPRO 100 UNITS/ML VIAL SC SCH ×3 (07:16→16:49)
[2018-10-19] MEDS: ENOXAPARIN SODIUM 40 MG/0.4 ML SYRG SC SCH (07:17)
[2018-10-19] MEDS: HYDROcodone/ACETAMINOPHEN 1 EACH TABLET PO PRN ×3 (07:22→23:02)
[2018-10-19 08:01] LABS: Hematocrit 42.5 % (42.0-52.0); Hemoglobin 14.1 gm/dL (13.5-18.0); Mean Cell Volume 90.4 fl (78-100); Mean Corpuscular Hgb Conc 33.2 g/dl (32-36); Mean Platelet Volume 9.1 fl (8-11.3); Neutrophil # 6.5 K/mm3 (1.3-6.0); Neutrophil % 60.7 % (42-75.0); Platelet Count 376 K/mm3 (150-450); Red Cell Distribution Width 11.8 % (11.5-14.0); White Blood Count 10.8 K/mm3 (4.0-10.5)
[2018-10-19 08:16] LABS: Anion Gap 12.4 mmol/L (6.8-13.8); BUN/Creatinine Ratio 18.3 (9.0-21.6); Calcium * 9.3 mg/dL (7.9-10.9); Carbon Dioxide 27.2 mmol/L (24-32.6); Estimated Creat Clear 83.1; Potassium 4.6 mmol/L (3.4-4.6)
[2018-10-19] MEDS: LISINOPRIL 10 MG TABLET PO SCH (08:53)
[2018-10-19] MEDS: SACCHAROMYCES BOULARDII 250 MG CAPSULE PO SCH ×2 (08:53→21:07)
[2018-10-19] MEDS: ASPIRIN 81 MG TABLET.DR PO SCH (08:53)
[2018-10-19] MEDS: METOPROLOL TARTRATE 50 MG TABLET PO SCH ×2 (08:53→21:08)
[2018-10-19] MEDS: HYDROPHILIC OINTMENT 454 APPL JAR TP SCH (08:53)
[2018-10-19] MEDS: SERTRALINE HCL 100 MG TABLET PO SCH (08:54)
[2018-10-19] MEDS: GABAPENTIN 300 MG CAPSULE PO SCH ×3 (08:54→16:49)
--- NOTE | 2018-10-19 10:33 | PN ---
Subjective - Date and Time Seen Date: 10/19/18 Time: 10:29 Subjective Narrative: Patient afebrile. Going for surgery today. Objective - Review of Systems Generalized/Overall Review: Denies: Chills, Fever EENTM: Denies: Blurred Vision Respiratory: Denies: Cough, Shortness of Breath Cardiac: Denies: Chest Pain, Edema, Palpitations Abdominal: Denies: Nausea, Vomiting Genitourinary Symptoms: Denies: Urgency, Frequency Musculoskeletal Complaints: Reports: Joint Pain Neurological: Denies: Headache Skin: Reports: Other - positive ulcer. Denies: Lesions, Rash Endocrine: Denies: Intolerance to Cold, Intolerance to Heat - Vitals Vitals: Last Vital Signs Temp 36.5 C 10/19/18 09:00 Pulse 81 10/19/18 09:00 Resp 18 10/19/18 09:00 BP 134/80 10/19/18 09:00 Pulse Ox 98 10/19/18 09:00 - Abnormal Lab Findings Abnormal Lab Findings: Abnormal Lab Results 10/19/18 10/19/18 Range/Units 07:00 07:00 WBC 10.8 H (4.0-10.5) K/mm3 Immature Gran % (Auto) 0.90 H (0.001-0.429) % Immature Gran # (Auto) 0.10 H (0.000-0.0310) K/mm3 Neutrophils # 6.5 H (1.3-6.0) K/mm3 Random Glucose 133 H D (70-110) mg/dL - Exam Constitutional: Present: Alert, Oriented x3, Cooperative ENT Exam: Present: hearing grossly normal Neck: Present: supple Respiratory: Present: normal breath sounds, No rales, No wheezing Cardiovascular/Chest: Present: regular rate, rhythm, no JVD, no murmur Abdomen: Present: Normal bowel sounds, soft, nontender, nondistended Extremity: Present: no calf tenderness, swelling Assessment/Plan Plan Narrative: Will continue with present management and current medications. For incision, drainage, debridement of infected soft tisuue and infected osseus tissue. - Problems/Diagnosis (1) Elevated serum creatinine Problem: Resolved (2) Failure of outpatient treatment Problem: Acute (3) Cellulitis of foot Problem: Acute Narrative: leukocytosis going down. MRI showing abscess/OM/septic arthritis for OR today (4) Diabetic foot ulcer Problem: Acute Narrative: continue with IV antibiotics,. for OR today. 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
--- NOTE | 2018-10-19 13:51 | ANES ---
Anesthesia Pre Procedure Eval Vitals/Labs: Last Vital Signs Temp 36.5 C 10/19/18 09:00 Pulse 81 10/19/18 09:00 Resp 18 10/19/18 09:00 BP 134/80 10/19/18 09:00 Pulse Ox 98 10/19/18 09:00 HOME MEDICATIONS Linagliptin/Metformin HCl [Jentadueto 2.5 mg-850 mg Tab] 1 ea PO BIDWM 10/08/18 [Last Taken Unknown] Albuterol Sulfate [Proventil Hfa] 2 puff INHALATION Q6H PRN 10/11/18 [Last Taken Unknown] Aspirin [Aspirin EC] 81 mg PO DAILY 10/11/18 [Last Taken Unknown] Gabapentin 600 mg PO TID 10/11/18 [Last Taken Unknown] Gemfibrozil 600 mg PO BID 10/11/18 [Last Taken Unknown] Insulin Aspart [Novolog Flexpen] 20 unit SQ AC 10/11/18 [Last Taken Unknown] Insulin Glargine,Hum.rec.anlog [Lantus Solostar] 43 unit SQ HS 10/11/18 [Last Taken Unknown] Ipratropium/Albuterol Sulfate [Iprat-Albut 0.5-3(2.5) mg/3 ml] 3 ml INHALATION QID PRN 10/11/18 [Last Taken Unknown] Lisinopril [Zestril] 30 mg PO DAILY 10/11/18 [Last Taken Unknown] Metoprolol Tartrate 50 mg PO BID 10/11/18 [Last Taken Unknown] Mirtazapine [Remeron] 30 mg PO HS 10/11/18 [Last Taken Unknown] Naproxen 375 mg PO BID 10/11/18 [Last Taken Unknown] Sertraline HCl [Zoloft] 100 mg PO DAILY 10/11/18 [Last Taken Unknown] risperiDONE [Risperdal] 2 mg PO HS 10/11/18 [Last Taken Unknown] traZODone HCL [Desyrel] 50 mg PO HS 10/11/18 [Last Taken Unknown] Clindamycin HCl 600 mg PO Q8H 7 Days #21 cap 10/13/18 [Last Taken Unknown] Allergies/Adverse Reactions: Allergies Allergy/AdvReac Type Severity Reaction Status Date / Time No Known Allergies Allergy Verified 10/15/18 23:23 - Planned Procedure Planned Procedure: FOOT CELLULITIS FAILED TREATMENT Medication List Reviewed:: Yes Allergies Verified: Yes Medical History (Updated 10/19/18 @ 10:33 by Edward Jimenez MD) COPD (chronic obstructive pulmonary disease) Diabetes Heart murmur Hypercholesteremia Hypertension Surgical History (Updated 10/11/18 @ 13:37 by Yasmeen Mccrary DPM) Knee pain cleaned out staph infection Right foot pain cleaned out staph infection Right hip pain cleaned out staph infection Family History (Updated 10/08/18 @ 15:17 by Maria Pelaez RN) Mother Diabetes Father Lung cancer Grandfather Myocardial infarction - Family Anesthesia History Family History:: no untoward family reactions to anesthesia, no familial bleeding tendencies, no family history of clotting disorders, no family history of premature - Airway/Neck/Teeth Within Normal Limits:: Yes Teeth Condition: missing - and loose, remaining soon to be removed, poor condition Denture Type: None Neck Exam: full range of motion Mallampatti Score: 2 Thyromental (T-M) distance: > 6 cm Mandibulo Hyoid distance: > 3 cm - Respiratory Respiratory History: COPD Respiratory Physical: decreased breath sounds, rhonchi Smoking Status: Current every day smoker Sleep Apnea currently treated: No Sleep Apnea by current assessment: No - Cardiovascular Cardiac History: hypertension, hyperlipidemia Tolerate Activity: Fair Heart Sounds: S1 & S2, Regular - Anesthesia Assessment and Plan ASA Class: PS, III Anesthesia Type Plan: MAC
[2018-10-19] MEDS ORDERED: RINGER'S SOLUTION,LACTATED 1,000 ML IV PRN (13:55)
[2018-10-19] MEDS ORDERED: BACITRACIN 50,000 UNITS VIAL IR ONE (14:26)
[2018-10-19] MEDS ORDERED: BUPIVACAINE HCL 50 ML VIAL IJ ONE (14:26)
[2018-10-19] MEDS ORDERED: LIDOCAINE HCL 10 ML VIAL IJ ONE (14:27)
--- NOTE | 2018-10-19 15:31 | ANES ---
Post Anesthesia Discharge - Transfer of Care Transfer of Care handoff given to nurse: Yes - Discharge to ASU Discharge to ASU-no complications/pt stable: Yes - Comfortable in room
--- NOTE | 2018-10-19 15:46 | ANES ---
Post Anesthesia Assessment - Vital Signs Vitals: Last Vital Signs Temp 35.5 C L 10/19/18 15:30 Pulse 78 10/19/18 15:41 Resp 16 10/19/18 15:41 BP 139/68 10/19/18 15:41 Pulse Ox 98 10/19/18 15:41 Airway Patency: Normal - Mental Status Level Of Consciousness: Awake, Alert, Appropriate - Pain Level Pain Score: 0 - N/V Assessment Nausea/Vomiting Presence: None Dehydration:: No
--- NOTE | 2018-10-19 16:13 | OR ---
Operative Report - Dictated Report Narrative: OPERATIVE REPORT Date of Surgery: 10/19/2018 Time of Surgery: 1415 Surgeon: Yasmeen Mccrary DPM Criminal Justice Lawyer: None Preoperative Diagnosis: Abscess and osteomyelitis right foot Postoperative Diagnosis: Abscess and osteomyelitis right foot Procedure: Incision and debridement, with excision of infected tissue and bone right foot Pathology: 4th and 5th metatarsal-phalangeal joints will be sent for culture Anesthesia: Local with Monitored Anesthesia Care Hemostasis: Pneumatic ankle tourniquet at 250 mmHg of pressure Estimated Blood Loss: Minimal Materials: 2-0 Vicryl suture, 3-0 Monocryl suture, 3-0 Nylon suture; 1/4" Iodoform packing gauze Injectables: 20 mL of a 1:1 mix of 1% lidocaine and 0.5% Marcaine without Epinephrine Complications: None Procedure in Detail: Patient was brought into the operating room and placed on the operating table in the supine position. Pneumatic ankle tourniquet was placed about the patient's right ankle. Following IV sedation, local anesthesia was obtained about the bases of the right 4th and 5th metatarsals utilizing a total of 20 mL of a 1:1 mix of 1% lidocaine plain and 0.5% Marcaine plain. The foot was then scrubbed prepped and draped in the usual aseptic manner. [place]en[place] was then utilized to exsanguinate the patient's right foot and the pneumatic ankle tourniquet was inflated. Attention was then directed to the lateral aspect of the patients right foot, where a curvilinear incision was made overlying the dorsal aspects of the 4th and 5th metatarsal-phalangeal joints. Dissection was continued through the subcutaneous tissue with both sharp and blunt dissection, with care being taken to identify and retract all neurovascular structures, and all bleeders being ligated and cauterized as necessary. Attention was then directed into the webspace between the 4th and 5th metatarsal, where an abscess was indicated on the MRI. Dissection was continued into the webspace, and there was approximately 2 mL of purulent fluid expressed from this area. The tissues were probed to assess for any tracking into the surrounding tissues, and no tracks were found. The abscess did, however, communicate with the puncture site on the plantar surface of the foot. All devitalized, necrotic tissue that was encountered was excised until only healthy appearing tissue remained. Attention was then directed to the 4th and 5th metatarsal-phalangeal joints. A linear type capsulotomy was performed over the dorsal aspects of each of these joints. The bone was inspected, and was noted to be slightly yellow in color. It was not soft on palpation. The heads of the 4th and 5th metatarsals, as well as the bases of their respective proximal phalanges, were resected with a saggital bone saw, freed of their surrounding soft tissues, and removed from the operative site. These bones will be sent for culture. Attention was redirected back to the surgical site, which was inspected for any remaining potentially infected tissues, and none were appreciated. The wound was then flushed with sterile saline infused with Bacitracin by use of Versajet. After the wound was flushed, one final inspection was made, and all remaining tissues appeared to be healthy. Periosteal and capsular structures were then reapproximated and coapted with 2- 0 Vicryl suture, subcutaneous tissues were reapproximated and coapted with 3-0 Monocryl suture, and the skin was reapproximated and coapted with 3-0 Nylon in a running interlocking suture technique. The puncture site to the plantar surface of the foot, as well as ulceration to the sulcus of the 4th toe, were then packed with 1/4" Iodoform packing gauze to reduce risk of any recurrent fluid collection within the surgical site. Following completion of this procedure, the incision was dressed with a sterile compressive dressing consisting of 4 x 4's and Monica covered with a light layer Coban wrap. The pneumatic ankle tourniquet was deflated and prompt hyperemic response was noted to all digits of the right foot. A postoperative shoe was then applied. Patient tolerated procedure and anesthesia well. He was transferred to recovery with vital signs stable and vascular status intact all toes of the right foot. Following a period of postoperative monitoring, the patient will be returned to his room on the hospital floor with the following written and oral postoperative instructions: 1. Keep the dressing clean dry and intact 2. Avoid excessive ambulation on the right foot 3. Ice and elevate the right foot while at rest 4. Wear surgical shoe on the right foot at all times while ambulating 5. Contact my office for all postoperative follow-up care, and should any problems arise 6. Resume all previous medications.
[2018-10-19] MEDS: traZODone HCL 50 MG TABLET PO SCH (21:07)
[2018-10-19] MEDS: risperiDONE 1 MG TABLET PO SCH (21:08)
[2018-10-19] MEDS: INSULIN GLARGINE,HUM.REC.ANLOG 100 UNITS/ML VIAL SC SCH (21:09)
[2018-10-20] MEDS: VANCOMYCIN HCL 1.25 GM in DEXTROSE 5 % IN WATER 250 ML IV SCH ×4 (02:10→15:44)
[2018-10-20] MEDS: HYDROcodone/ACETAMINOPHEN 1 EACH TABLET PO PRN ×3 (04:13→17:43)
[2018-10-20 06:02] LABS: Hematocrit 40.7 % (42.0-52.0); Hemoglobin 13.4 gm/dL (13.5-18.0); Mean Cell Volume 91.5 fl (78-100); Mean Corpuscular Hemoglobin 30.1 pg (27-31); Mean Corpuscular Hgb Conc 32.9 g/dl (32-36); Mean Platelet Volume 9.2 fl (8-11.3); Neutrophil # 8.2 K/mm3 (1.3-6.0); Neutrophil % 67.7 % (42-75.0); Platelet Count 388 K/mm3 (150-450); Red Blood Count 4.45 M/mm3 (4.7-6.0); Red Cell Distribution Width 11.9 % (11.5-14.0); White Blood Count 12.1 K/mm3 (4.0-10.5)
[2018-10-20 06:17] LABS: Anion Gap 11.1 mmol/L (6.8-13.8); BUN/Creatinine Ratio 16.2 (9.0-21.6); Calcium * 9.1 mg/dL (7.9-10.9); Carbon Dioxide 27.5 mmol/L (24-32.6); Estimated Creat Clear 76.7; Potassium 4.6 mmol/L (3.4-4.6)
[2018-10-20] MEDS: INSULIN LISPRO 100 UNITS/ML VIAL SC SCH ×3 (07:20→17:40)
[2018-10-20] MEDS: ENOXAPARIN SODIUM 40 MG/0.4 ML SYRG SC SCH (07:20)
--- NOTE | 2018-10-20 09:15 | PN ---
Subjective - Date and Time Seen Date: 10/20/18 Time: 09:13 Subjective Narrative: POD # 1 . afebrile. WBC is up. Objective - Review of Systems Generalized/Overall Review: Denies: Chills, Fever EENTM: Denies: Blurred Vision Respiratory: Denies: Cough, Shortness of Breath Cardiac: Reports: Edema. Denies: Chest Pain, Palpitations Abdominal: Denies: Nausea Genitourinary Symptoms: Denies: Urgency, Frequency Musculoskeletal Complaints: Reports: Joint Pain Neurological: Reports: Other - burning Skin: Denies: Rash Endocrine: Denies: Intolerance to Cold, Intolerance to Heat Misc: All systems neg except as marked - Vitals Vitals: Last Vital Signs Temp 36.5 C 10/20/18 06:26 Pulse 74 10/20/18 06:26 Resp 18 10/20/18 06:26 BP 102/67 10/20/18 06:26 Pulse Ox 96 10/20/18 06:26 - Abnormal Lab Findings Abnormal Lab Findings: Abnormal Lab Results 10/20/18 10/20/18 Range/Units 05:56 05:56 WBC 12.1 H (4.0-10.5) K/mm3 RBC 4.45 L (4.7-6.0) M/mm3 Hgb 13.4 L (13.5-18.0) gm/dL Hct 40.7 L (42.0-52.0) % Immature Gran % (Auto) 0.70 H (0.001-0.429) % Immature Gran # (Auto) 0.08 H (0.000-0.0310) K/mm3 Neutrophils # 8.2 H (1.3-6.0) K/mm3 Monocytes # 1.1 H (0.0-1.0) k/mm3 Random Glucose 162 H (70-110) mg/dL - Exam Constitutional: Present: Alert, Oriented x3, Cooperative ENT Exam: Present: hearing grossly normal Neck: Present: supple Respiratory: Present: normal breath sounds, No rales, No wheezing Cardiovascular/Chest: Present: regular rate, rhythm, no JVD, no murmur Abdomen: Present: Normal bowel sounds, soft, nontender, nondistended Extremity: Present: no calf tenderness, pedal edema, other - right foot wrapped in dressing- dry Assessment/Plan Plan Narrative: We will continue with present management and current medications. he underwent incision and drainage of abscess, debridement of infected soft tissue and bone. Wound culture growing E. fecalis and Staph [facility]. await culture and pathology. 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
[2018-10-20] MEDS: SERTRALINE HCL 100 MG TABLET PO SCH (09:22)
[2018-10-20] MEDS: ASPIRIN 81 MG TABLET.DR PO SCH (09:22)
[2018-10-20] MEDS: METOPROLOL TARTRATE 50 MG TABLET PO SCH ×2 (09:22→20:39)
[2018-10-20] MEDS: LISINOPRIL 10 MG TABLET PO SCH (09:22)
[2018-10-20] MEDS: SACCHAROMYCES BOULARDII 250 MG CAPSULE PO SCH ×2 (09:23→20:39)
[2018-10-20] MEDS: HYDROPHILIC OINTMENT 454 APPL JAR TP SCH (09:23)
--- NOTE | 2018-10-20 13:04 | PN ---
Subjective - Date and Time Seen Date: 10/20/18 Objective Objective Narrative: Pt resting comfortably in bed. Does relate some pain to the lateral aspect of his right foot. Believes it is from the dressing being a little too tight as he has developed some swelling following surgery yesterday. Otherwise, states he feels well. Denies any N/V/V/C. Has kept his dressing CDI as instructed. Appetite is good. - Review of Systems Generalized/Overall Review: Denies: Chills, Fever Respiratory: Denies: Shortness of Breath Cardiac: Denies: Edema Abdominal: Denies: Nausea, Vomiting, Diarrhea Musculoskeletal Complaints: Reports: Other - right foot pain Skin: Reports: Other - incision right foot, puncture wound and ulceration right foot - Vitals Vitals: Last Vital Signs Temp 36.6 C 10/20/18 10:46 Pulse 71 10/20/18 10:46 Resp 18 10/20/18 10:46 BP 135/64 10/20/18 10:46 Pulse Ox 98 10/20/18 10:46 - Abnormal Lab Findings Abnormal Lab Findings: Abnormal Lab Results 10/20/18 10/20/18 Range/Units 05:56 05:56 WBC 12.1 H (4.0-10.5) K/mm3 RBC 4.45 L (4.7-6.0) M/mm3 Hgb 13.4 L (13.5-18.0) gm/dL Hct 40.7 L (42.0-52.0) % Immature Gran % (Auto) 0.70 H (0.001-0.429) % Immature Gran # (Auto) 0.08 H (0.000-0.0310) K/mm3 Neutrophils # 8.2 H (1.3-6.0) K/mm3 Monocytes # 1.1 H (0.0-1.0) k/mm3 Random Glucose 162 H (70-110) mg/dL - Exam Constitutional: Present: Alert, Oriented x3, Cooperative Extremity: Present: swelling - mild - lateral right forefoot, other - right foot pain Skin Exam: Present: other - Dressing over right foot CDI with moderate bloody drainage following surgery. Incision well approximated with sutures intact dorsal lateral foot. Ulceration between 4th/5th toes and puncture site to plantar surface of the foot both with packing in place. Upon removal, bloody drainage only expressed from these sites, no longer with purulence. There remains a slight amount of redness to the dorsal aspect of the foot about the 4th/5th MtPJ around the incision line, however this has improved since surgery. Mild swelling present about the dorsal lateral foot. Puncture site remains painful to palpation, as well as the incision line, otherwise denies pain after dressing removed. Appearance: Present: appropriate appearance Eye contact: Present: cooperative Assessment/Plan - Problems/Diagnosis (1) Puncture wound of foot excluding toes with infection Problem: Acute Qualifiers: Encounter type: subsequent encounter Laterality: right Qualified Code(s): S91.331D - Puncture wound without foreign body, right foot, subsequent encounter; L08.9 - Local infection of the skin and subcutaneous tissue, unspecified Narrative: POD #1 following I&D with removal of infected tissue and bone. Progressing well. Redness has improved, as well as pain. No fevers or chills. Mild swelling present about the surgical site, otherwise swelling resolved about the foot. Awaiting pathology report, as bone was not sent for culture. Dr. Nunez will try to gram stain from the bone received. If this shows gram positive cocci, will plan treatment with oral Linezolid as his previous cultures have shown sensitivity to this medication. Otherwise would recommend IV ABX therapy if patient will accept. Dressing and packing are changed today. The puncture site of the plantar foot is left without packing, and the ulceration between the 4th/5th toes is re- packed today with 1/4" Iodoform packing gauze. The foot is dressed with a DSD of gauze, meenakshi, and JULIANA bandage. He may bear weight on the foot in a surgical shoe. Keep foot elevated at rest to reduce swelling. Will plan to remove packing tomorrow and apply a new dressing for anticipated discharge home, pending pathology results. Will continue with current ABX at this time. (2) Cellulitis of right foot Problem: Acute
[2018-10-20] MEDS: GABAPENTIN 300 MG CAPSULE PO SCH ×2 (13:25→17:39)
[2018-10-20] MEDS: risperiDONE 1 MG TABLET PO SCH (20:38)
[2018-10-20] MEDS: traZODone HCL 50 MG TABLET PO SCH (20:40)
[2018-10-20] MEDS: INSULIN GLARGINE,HUM.REC.ANLOG 100 UNITS/ML VIAL SC SCH (20:44)
[2018-10-21] MEDS: VANCOMYCIN HCL 1.25 GM in DEXTROSE 5 % IN WATER 250 ML IV SCH ×4 (02:54→15:06)
[2018-10-21] MEDS: INSULIN LISPRO 100 UNITS/ML VIAL SC SCH ×3 (06:56→17:41)
[2018-10-21] MEDS: ENOXAPARIN SODIUM 40 MG/0.4 ML SYRG SC SCH (06:57)
[2018-10-21] MEDS: GABAPENTIN 300 MG CAPSULE PO SCH ×4 (07:14→17:40)
[2018-10-21 08:02] LABS: Hematocrit 44.6 % (42.0-52.0); Hemoglobin 14.4 gm/dL (13.5-18.0); Mean Cell Volume 91.6 fl (78-100); Mean Corpuscular Hemoglobin 29.6 pg (27-31); Mean Corpuscular Hgb Conc 32.3 g/dl (32-36); Mean Platelet Volume 9.5 fl (8-11.3); Neutrophil # 6.4 K/mm3 (1.3-6.0); Neutrophil % 66.3 % (42-75.0); Platelet Count 399 K/mm3 (150-450); Red Blood Count 4.87 M/mm3 (4.7-6.0); Red Cell Distribution Width 11.9 % (11.5-14.0); White Blood Count 9.7 K/mm3 (4.0-10.5)
[2018-10-21 08:35] LABS: Anion Gap 12.3 mmol/L (6.8-13.8); BUN/Creatinine Ratio 14.5 (9.0-21.6); Carbon Dioxide 26.2 mmol/L (24-32.6); Estimated Creat Clear 68.8; Potassium 4.5 mmol/L (3.4-4.6)
[2018-10-21] MEDS: LISINOPRIL 10 MG TABLET PO SCH (08:52)
[2018-10-21] MEDS: ASPIRIN 81 MG TABLET.DR PO SCH (08:52)
[2018-10-21] MEDS: SERTRALINE HCL 100 MG TABLET PO SCH (08:52)
[2018-10-21] MEDS: METOPROLOL TARTRATE 50 MG TABLET PO SCH ×2 (08:53→20:51)
[2018-10-21] MEDS: SACCHAROMYCES BOULARDII 250 MG CAPSULE PO SCH ×2 (08:53→20:49)
[2018-10-21] MEDS: HYDROPHILIC OINTMENT 454 APPL JAR TP SCH (08:55)
[2018-10-21] MEDS: HYDROcodone/ACETAMINOPHEN 1 EACH TABLET PO PRN ×3 (09:06→23:46)
--- NOTE | 2018-10-21 12:32 | PN ---
Subjective - Date and Time Seen Date: 10/21/18 Time: 12:25 Subjective Narrative: patient afebrile. has no major complaint today. Objective - Review of Systems Generalized/Overall Review: Denies: Chills, Fever EENTM: Denies: Blurred Vision Respiratory: Denies: Cough, Shortness of Breath, Orthopnea Cardiac: Denies: Chest Pain, Edema, Palpitations Abdominal: Denies: Nausea, Vomiting Genitourinary Symptoms: Denies: Urgency, Frequency Musculoskeletal Complaints: Reports: Joint Pain. Denies: Back Pain Neurological: Denies: Headache, Seizure Skin: Denies: Lesions, Rash Endocrine: Denies: Intolerance to Cold, Intolerance to Heat Misc: All systems neg except as marked - Vitals Vitals: Last Vital Signs Temp 36.8 C 10/21/18 09:59 Pulse 69 10/21/18 09:59 Resp 18 10/21/18 09:59 BP 132/76 10/21/18 09:59 Pulse Ox 96 10/21/18 09:59 - Abnormal Lab Findings Abnormal Lab Findings: Abnormal Lab Results 10/21/18 10/21/18 10/21/18 Range/Units 07:35 07:35 07:35 Immature Gran % (Auto) 0.70 H (0.001-0.429) % Immature Gran # (Auto) 0.07 H (0.000-0.0310) K/mm3 Neutrophils # 6.4 H (1.3-6.0) K/mm3 ESR 90 H (0-10) mm/hr Creatinine 1.45 H (0.4-1.4) mg/dL Est GFR (Non-Af Amer) 54 L (60-130) mL/min Random Glucose 300 H D (70-110) mg/dL C-Reactive Prot, Quant 11.0 H (0.0-0.9) mg/dL - Exam Constitutional: Present: Alert, Oriented x3, Cooperative ENT Exam: Present: hearing grossly normal. Absent: nasal congestion Neck: Present: supple. Absent: lymphadenopathy (R), lymphadenopathy (L) Respiratory: Present: normal breath sounds, No rales, No wheezing Cardiovascular/Chest: Present: regular rate, rhythm, no JVD, no murmur Abdomen: Present: Normal bowel sounds, soft, nontender, nondistended Extremity: Present: no calf tenderness, pedal edema - right foot, other - foot wrapped in Javad bandage Assessment/Plan Plan Narrative: abscess, cellulitis, Osteomyelitis- s/p incision drainage, debridement. Day # 6 of IV Vancomycin. Podiatry is awaiting gram stain of his bone tissue and if still just gram positives to start him oral linelzolid which I agree. Will continue with parenteral antibiotics for at least a total of 7 days as burden of infection was removed and then change to oral antibiotics. 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
--- NOTE | 2018-10-21 13:16 | PN ---
Subjective - Date and Time Seen Date: 10/21/18 Time: 12:30 Subjective Narrative: Pt seen at bedside resting. States that he continues to feel better. Does still have some pain in the right foot following surgery, but improving. Now only painful with weightbearing. Relates that he somehow undid the outer layer of his dressing through the night when he was sleeping, and it was replaced by nursing staff. Remainder of dressing has been kept CDI. Pathology report with no growth on gram stain. Margins of bone clean. Objective - Review of Systems Generalized/Overall Review: Denies: Chills, Fever, Fatigue Respiratory: Denies: Shortness of Breath Cardiac: Denies: Edema Abdominal: Denies: Nausea, Vomiting, Diarrhea Musculoskeletal Complaints: Reports: Other - right foot pain Skin: Reports: Other - incision, ulceration right foot - Vitals Vitals: Last Vital Signs Temp 36.8 C 10/21/18 09:59 Pulse 69 10/21/18 09:59 Resp 18 10/21/18 09:59 BP 132/76 10/21/18 09:59 Pulse Ox 96 10/21/18 09:59 - Abnormal Lab Findings Abnormal Lab Findings: Abnormal Lab Results 10/21/18 10/21/18 10/21/18 Range/Units 07:35 07:35 07:35 Immature Gran % (Auto) 0.70 H (0.001-0.429) % Immature Gran # (Auto) 0.07 H (0.000-0.0310) K/mm3 Neutrophils # 6.4 H (1.3-6.0) K/mm3 ESR 90 H (0-10) mm/hr Creatinine 1.45 H (0.4-1.4) mg/dL Est GFR (Non-Af Amer) 54 L (60-130) mL/min Random Glucose 300 H D (70-110) mg/dL C-Reactive Prot, Quant 11.0 H (0.0-0.9) mg/dL - Exam Constitutional: Present: Alert, Oriented x3, Cooperative Extremity: Present: swelling - mild - lateral right foot, other - pain lateral right foot Skin Exam: Present: other - Dressing over right foot CDI with minimal bloody drainage from packing site following surgery. Incision well approximated with sutures intact dorsal lateral foot. Ulceration between 4th/5th toes with packing in place. Upon removal, bloody drainage only expressed from this site. There remains a slight amount of redness to the dorsal aspect of the foot about the 4th/5th MtPJ around the incision line, however this has improved since surgery. Mild swelling present about the dorsal lateral foot. Puncture site remains painful to palpation, as well as the incision line. Appearance: Present: appropriate appearance Eye contact: Present: cooperative Assessment/Plan - Problems/Diagnosis (1) Puncture wound of foot excluding toes with infection Problem: Acute Qualifiers: Encounter type: subsequent encounter Laterality: right Qualified Code(s): S91.331D - Puncture wound without foreign body, right foot, subsequent encounter; L08.9 - Local infection of the skin and subcutaneous tissue, unspecified Narrative: POD #2 following I&D with removal of infected tissue and bone. Progressing well. Redness continues to improve, as well as pain. No fevers or chills. Mild swelling present about the surgical site, otherwise swelling resolved about the foot. Pathology report showing clean bone margins, as well as acute/chronic osteomyelitis of the subchondral bone in the metatarsal heads. No growth on gram stains. Given his history of abscess found during surgery, as well as recurrent infections, will plan treatment with oral Linezolid as his previous cultures have shown sensitivity to this medication. Packing is removed and dressing is changed today. The ulceration between the 4th/5th toes is covered with Aquacel AG, and the foot is dressed with a DSD of gauze, meenakshi, and JULIANA bandage. He may bear weight on the foot in a surgical shoe. Keep foot elevated at rest to reduce swelling. He is ok for d/c home from my standpoint when cleared per PCP. Will plan follow up on Wednesday afternoon. (2) Cellulitis of right foot Problem: Acute
[2018-10-21] MEDS: risperiDONE 1 MG TABLET PO SCH (20:49)
[2018-10-21] MEDS: traZODone HCL 50 MG TABLET PO SCH (20:50)
[2018-10-21] MEDS: INSULIN GLARGINE,HUM.REC.ANLOG 100 UNITS/ML VIAL SC SCH (20:50)
[2018-10-22] MEDS: VANCOMYCIN HCL 1.25 GM in DEXTROSE 5 % IN WATER 250 ML IV SCH ×4 (03:00→16:17)
[2018-10-22] MEDS: HYDROcodone/ACETAMINOPHEN 1 EACH TABLET PO PRN ×3 (04:40→20:26)
[2018-10-22] MEDS: INSULIN LISPRO 100 UNITS/ML VIAL SC SCH ×3 (07:51→16:53)
[2018-10-22] MEDS: ENOXAPARIN SODIUM 40 MG/0.4 ML SYRG SC SCH (07:52)
[2018-10-22] MEDS: GABAPENTIN 300 MG CAPSULE PO SCH ×3 (10:00→16:52)
[2018-10-22] MEDS: METOPROLOL TARTRATE 50 MG TABLET PO SCH ×2 (10:00→22:26)
[2018-10-22] MEDS: ASPIRIN 81 MG TABLET.DR PO SCH (10:00)
[2018-10-22] MEDS: LISINOPRIL 10 MG TABLET PO SCH (10:00)
[2018-10-22] MEDS: SERTRALINE HCL 100 MG TABLET PO SCH (10:00)
[2018-10-22] MEDS: SACCHAROMYCES BOULARDII 250 MG CAPSULE PO SCH ×2 (10:00→20:31)
[2018-10-22] MEDS: HYDROPHILIC OINTMENT 454 APPL JAR TP SCH (10:01)
[2018-10-22] MEDS: traZODone HCL 50 MG TABLET PO SCH (20:31)
[2018-10-22] MEDS: risperiDONE 1 MG TABLET PO SCH (20:32)
[2018-10-22] MEDS: INSULIN GLARGINE,HUM.REC.ANLOG 100 UNITS/ML VIAL SC SCH (20:38)
--- NOTE | 2018-10-22 23:20 | PN ---
Subjective - Date and Time Seen Date: 10/22/18 Time: 12:30 Subjective Narrative: Chris reports feeling good. Pain is controlled. No fever, nausea, vomiting, or shortness of breath. Objective - Vitals Vitals: Last Vital Signs Temp 37.3 C 10/22/18 19:24 Pulse 73 10/22/18 19:24 Resp 14 10/22/18 19:24 BP 96/69 10/22/18 19:24 Pulse Ox 96 10/22/18 19:24 - Exam Constitutional: Present: Alert, Oriented x3, Cooperative Respiratory: Present: lungs clear, normal breath sounds Cardiovascular/Chest: Present: regular rate, rhythm, no murmur Abdomen: Present: Normal bowel sounds, soft, nontender, nondistended Skin Exam: Present: other - No worsening erythema Assessment/Plan Plan Narrative: Today and tonight will be the final doses of IV vancomycin. Will plan to discharge to home on linezolid tomorrow with outpatient follow up. No changes made today. - Problems/Diagnosis (1) Osteomyelitis Problem: Acute Qualifiers: Osteomyelitis type: unspecified type Osteomyelitis location: foot Laterality: right Qualified Code(s): M86.9 - Osteomyelitis, unspecified (2) Abscess Problem: Acute (3) Cellulitis of right foot Problem: Acute (4) Diabetic foot ulcer Problem: Acute Qualifiers: Diabetic foot ulcer location: other Diabetes mellitus type: type 2 Laterality: right Non-pressure ulcer stage: with bone involvement without evidence of necrosis Qualified Code(s): E11.621 - Type 2 diabetes mellitus with foot ulcer; L97.516 - Non-pressure chronic ulcer of other part of right foot with bone involvement without evidence of necrosis
[2018-10-23] MEDS: VANCOMYCIN HCL 1.25 GM in DEXTROSE 5 % IN WATER 250 ML IV SCH ×2 (03:01)
[2018-10-23] MEDS: HYDROcodone/ACETAMINOPHEN 1 EACH TABLET PO PRN (03:06)
[2018-10-23] MEDS: INSULIN LISPRO 100 UNITS/ML VIAL SC SCH (06:44)
[2018-10-23] MEDS: ENOXAPARIN SODIUM 40 MG/0.4 ML SYRG SC SCH (06:44)
[2018-10-23] MEDS: SACCHAROMYCES BOULARDII 250 MG CAPSULE PO SCH (08:32)
[2018-10-23] MEDS: METOPROLOL TARTRATE 50 MG TABLET PO SCH (08:32)
[2018-10-23] MEDS: ASPIRIN 81 MG TABLET.DR PO SCH (08:32)
[2018-10-23] MEDS: HYDROPHILIC OINTMENT 454 APPL JAR TP SCH (08:32)
[2018-10-23] MEDS: GABAPENTIN 300 MG CAPSULE PO SCH (08:33)
[2018-10-23] MEDS: SERTRALINE HCL 100 MG TABLET PO SCH (08:33)
[2018-10-23] MEDS: LISINOPRIL 10 MG TABLET PO SCH (08:33)
--- NOTE | 2018-10-23 10:17 | DS ---
(1) Osteomyelitis Problem: Acute Qualifiers: Osteomyelitis type: unspecified type Osteomyelitis location: foot Laterality: right Qualified Code(s): M86.9 - Osteomyelitis, unspecified (2) Diabetic foot ulcer Problem: Acute (3) Cellulitis of right foot Problem: Acute Description of Stay: Chris is a 53 yo male that was admitted for cellulitis of right foot. There was concern for osteomyelitis and a MRI of his foot was obtained which showed: 1. Interval progression of soft tissue abnormality predominately centered adjacent to the plantar aspect of the fourth MTP joint, with a component intercalated between the fourth and fifth metatarsal head, concerning for progression of soft tissue phlegmon versus early abscess as discussed above. 2. Interval progression of marrow edema at the fourth and fifth proximal phalanges. There is also small amount of joint effusion at the fifth MTP joint, with synovial enhancement suggested on the fourth and fifth MTP joints. Consider progression of osteomyelitis/septic arthritis. Podiatry was consulted and took Chris to surgery on 10/19/18 for Incision and debridement, with excision of infected tissue and bone right foot. He was treated with IV vancomycin for 7 days which he has completed today. He is doing well. Pain is controlled with hydrocodone. Cellulitis is improved and he is without fever or chills. He will be discharged today and will be placed on Linezolid for 2 weeks. he will follow up with Dr. Mccrary tomorrow. Procedures Performed: see notes below List Procedures: 10/19/18: Incision and debridement, with excision of infected tissue and bone right foot Results and Findings: Lab Pending Results 10/15/18 21:27: WBC 16.2 H D, RBC 5.18, Hgb 15.6, Hct 47.0, MCV 90.7, MCH 30.1, MCHC 33.2, RDW 11.9, Plt Count 370, MPV 9.2, Immature Gran % (Auto) 0.60 H, Immature Gran # (Auto) 0.10 H, Neutrophils % 67.7, Lymphocytes % 21.9, Monocytes % 8.2, Eosinophils % 1.2, Basophils % 0.4, Nucleated RBC % 0.0, Neutrophils # 10.9 H, Lymphocytes # 3.53 H, Monocytes # 1.3 H, Eosinophils # 0.2, Absolute Basophils 0.1 10/15/18 21:27: Sodium 135, Plasma Sodium 138, Potassium 5.0 H, Chloride 100, Carbon Dioxide 26.9, Anion Gap 13.1, BUN 20 D, Creatinine 1.21, Est GFR (Non-Af Amer) 66 D, BUN/Creatinine Ratio 16.5, Random Glucose 288 H, Calcium 9.1, Calcium Adj for Albumin 9.4, Total Bilirubin 0.4, AST 15, ALT 26, Alkaline Phosphatase 93, Total Protein 8.2, Albumin 3.2 L 10/16/18 08:32: ESR 71 H 10/16/18 08:32: C-Reactive Prot, Quant 7.8 H 10/17/18 09:15: WBC 11.7 H D, RBC 4.67 L, Hgb 14.1, Hct 42.2, MCV 90.4, MCH 30.2, MCHC 33.4, RDW 11.9, Plt Count 336, MPV 8.9, Immature Gran % (Auto) 0.90 H, Immature Gran # (Auto) 0.10 H, Neutrophils % 66.6, Lymphocytes % 22.3, Monocytes % 7.7, Eosinophils % 2.1, Basophils % 0.4, Nucleated RBC % 0.0, Neutrophils # 7.8 H, Lymphocytes # 2.61, Monocytes # 0.9, Eosinophils # 0.3, Absolute Basophils 0.1 10/17/18 09:15: Sodium 134, Plasma Sodium 136, Potassium 4.1, Chloride 99, Carbon Dioxide 25.6, Anion Gap 13.5, BUN 23, Creatinine 1.24, Est GFR (Non-Af Amer) 64, BUN/Creatinine Ratio 18.5, Random Glucose 216 H, Calcium 9.0 10/18/18 07:33: WBC 11.1 H, RBC 4.95, Hgb 14.8, Hct 44.6, MCV 90.1, MCH 29.9, MCHC 33.2, RDW 11.9, Plt Count 376, MPV 9.2, Immature Gran % (Auto) 0.90 H, Immature Gran # (Auto) 0.10 H, Neutrophils % 61.5, Lymphocytes % 27.3, Monocytes % 8.1, Eosinophils % 1.7, Basophils % 0.5, Nucleated RBC % 0.0, Neutrophils # 6.8 H, Lymphocytes # 3.02, Monocytes # 0.9, Eosinophils # 0.2, Absolute Basophils 0.1 10/18/18 07:33: Sodium 137, Plasma Sodium 139, Potassium 4.7 H, Chloride 101, Carbon Dioxide 24.8, Anion Gap 15.9 H, BUN 25 H, Creatinine 1.43 H, Est GFR (Non-Af Amer) 55 L, BUN/Creatinine Ratio 17.5, Random Glucose 200 H, Calcium 9.4 10/18/18 14:30: Vancomycin Trough 18.1 10/19/18 07:00: WBC 10.8 H, RBC 4.70, Hgb 14.1, Hct 42.5, MCV 90.4, MCH 30.0, MCHC 33.2, RDW 11.8, Plt Count 376, MPV 9.1, Immature Gran % (Auto) 0.90 H, Immature Gran # (Auto) 0.10 H, Neutrophils % 60.7, Lymphocytes % 27.2, Monocytes % 8.2, Eosinophils % 2.4, Basophils % 0.6, Nucleated RBC % 0.0, Neutrophils # 6.5 H, Lymphocytes # 2.93, Monocytes # 0.9, Eosinophils # 0.3, Absolute Basophils 0.1 10/19/18 07:00: Sodium 137, Plasma Sodium 138, Potassium 4.6, Chloride 102, Carbon Dioxide 27.2, Anion Gap 12.4, BUN 22, Creatinine 1.20, Est GFR (Non-Af Amer) 67 D, BUN/Creatinine Ratio 18.3, Random Glucose 133 H D, Calcium 9.3 10/20/18 05:56: WBC 12.1 H, RBC 4.45 L, Hgb 13.4 L, Hct 40.7 L, MCV 91.5, MCH 30.1, MCHC 32.9, RDW 11.9, Plt Count 388, MPV 9.2, Immature Gran % (Auto) 0.70 H, Immature Gran # (Auto) 0.08 H, Neutrophils % 67.7, Lymphocytes % 20.8, Monocytes % 8.7, Eosinophils % 1.7, Basophils % 0.4, Nucleated RBC % 0.0, Neutrophils # 8.2 H, Lymphocytes # 2.52, Monocytes # 1.1 H, Eosinophils # 0.2, Absolute Basophils 0.1 10/20/18 05:56: Sodium 134, Plasma Sodium 135, Potassium 4.6, Chloride 100, Carbon Dioxide 27.5, Anion Gap 11.1, BUN 21, Creatinine 1.30, Est GFR (Non-Af Amer) 61, BUN/Creatinine Ratio 16.2, Random Glucose 162 H, Calcium 9.1 10/21/18 07:35: WBC 9.7, RBC 4.87, Hgb 14.4, Hct 44.6, MCV 91.6, MCH 29.6, MCHC 32.3, RDW 11.9, Plt Count 399, MPV 9.5, Immature Gran % (Auto) 0.70 H, Immature Gran # (Auto) 0.07 H, Neutrophils % 66.3, Lymphocytes % 22.8, Monocytes % 8.1, Eosinophils % 1.7, Basophils % 0.4, Nucleated RBC % 0.0, Neutrophils # 6.4 H, Lymphocytes # 2.20, Monocytes # 0.8, Eosinophils # 0.2, Absolute Basophils 0.0 10/21/18 07:35: ESR 90 H 10/21/18 07:35: Sodium 134, Plasma Sodium 137, Potassium 4.5, Chloride 100, Carbon Dioxide 26.2, Anion Gap 12.3, BUN 21, Creatinine 1.45 H, Est GFR (Non-Af Amer) 54 L, BUN/Creatinine Ratio 14.5, Random Glucose 300 H D, Calcium 9.0, C- Reactive Prot, Quant 11.0 H 10/21/18 14:42: Vancomycin Trough 21.4 H Discharge Location: Home Disposition: Home self-care Condition: Fair Discharge Activity: Activity as tolerated Discharge Diet: Consistent carbs Referrals: Michaelle Heart ARNP [Primary Care Provider] - One Week Yasmeen Mccrary DPM [Staff Physician] - 10/24/18 (Keep scheduled appointment tomorrow) Additional Patient Instructions (free text): 1. Keep the dressing clean dry and intact until your follow up with Dr Mccrary. 2. Avoid excessive ambulation on the right foot 3. Ice and elevate the right foot while at rest 4. Wear surgical shoe on the right foot at all times while ambulating 5. Contact my office for all postoperative follow-up care, and should any problems arise 6. Follow up with Dr Mccrary on Wednesday10/24/18 at 3:15pm. Prescriptions (Any new or edited meds): Saccharomyces Boulardii [Florastor] 250 mg PO BID #60 cap HYDROcodone/ACETAMINOPHEN [Jefferson 5-325] 1 ea PO Q4H PRN #30 tab PRN Reason: Pain Linezolid [Zyvox] 600 mg PO Q12H #28 tab Complete Home Medications List: Complete Home Medication List: Linagliptin/Metformin HCl [Jentadueto 2.5 mg-850 mg Tab] 1 ea PO BIDWM 10/08/18 Albuterol Sulfate [Proventil Hfa] 2 puff INHALATION Q6H PRN 10/11/18 Aspirin [Aspirin EC] 81 mg PO DAILY 10/11/18 Gabapentin 600 mg PO TID 10/11/18 Gemfibrozil 600 mg PO BID 10/11/18 Insulin Aspart [Novolog Flexpen] 20 unit SQ AC 10/11/18 Insulin Glargine,Hum.rec.anlog [Lantus Solostar] 43 unit SQ HS 10/11/18 Ipratropium/Albuterol Sulfate [Iprat-Albut 0.5-3(2.5) mg/3 ml] 3 ml INHALATION QID PRN 10/11/18 Lisinopril [Zestril] 30 mg PO DAILY 10/11/18 Metoprolol Tartrate 50 mg PO BID 10/11/18 Mirtazapine [Remeron] 30 mg PO HS 10/11/18 Naproxen 375 mg PO BID 10/11/18 Sertraline HCl [Zoloft] 100 mg PO DAILY 10/11/18 risperiDONE [Risperdal] 2 mg PO HS 10/11/18 traZODone HCL [Desyrel] 50 mg PO HS 10/11/18 HYDROcodone/ACETAMINOPHEN [Jefferson 5-325] 1 ea PO Q4H PRN #30 tab 10/23/18 Linezolid [Zyvox] 600 mg PO Q12H #28 tab 10/23/18 Saccharomyces Boulardii [Florastor] 250 mg PO BID #60 cap 10/23/18
[2018-10-23 11:25] VITALS: BP 110/80
== END 2018-10-23 11:31 | disposition home or self-care (01) | DRG 505 ==
LOC: ER 20:33 → MS 21:59
PROVIDERS: ADMIT Internal Medicine; ATTEND Internal Medicine
CPT/HCPCS: 36415; 73630; 73720; 80048; 80053; 80202; 85025; 85652; 86140; 87040; 87070; 87077; 87081; 87186; 88305; 88312; 96361; 96374; 99285; A9576